=== PATIENT | female | born 1965 | race Caucasian/White ===

== ENCOUNTER → 2016-09-03 | Outpatient (CLI) | payer OTHER ==
--- NOTE | 2016-09-04 07:24 | MM ---
Reason for exam: screening (asymptomatic). Last mammogram was performed 3 years and 9 months ago. History: Took hormonal contraceptives for 10 years beginning at age 19. Physical Findings: A clinical breast exam by your physician is recommended on an annual basis and results should be correlated with mammographic findings. MG Screening Mammo w CAD Bilateral CC and MLO view(s) were taken. Prior study comparison: December 05, 2012, bilateral digital screening mammo w/CAD. November 24, 2010, bilateral digital screening mammo w/CAD. There are scattered fibroglandular densities. No significant changes when compared with prior studies. ASSESSMENT: Benign, BI-RAD 2 RECOMMENDATION: Routine screening mammogram of both breasts in 1 year.
== END | disposition home or self-care (01) ==
LOC: RADMAMWWP 14:53
PROVIDERS: ATTEND Family Medicine
DX: Z12.31 Encounter for screening mammogram for malignant neoplasm of breast (principal)

== ENCOUNTER 2017-05-18 06:57 | Day surgery (SDC) | payer OTHER ==
[2017-04-30 10:51] VITALS: BMI 41.0
[~2017-05-18 06:57] MED LIST: LACTATED RINGERS 1,000 ML IV SCH
[2017-05-18] MEDS ORDERED: LACTATED RINGERS 1,000 ML IV ONE ×2 (07:08)
[2017-05-18 07:11] VITALS: TEMP 98.3
[2017-05-18] MEDS ORDERED: PROPOFOL 10 MG/ML 20 ML VIAL IV ONE (07:43)
--- NOTE | 2017-05-18 07:52 | P.GSHP ---
History of Present Illness H&P Date: 05/18/17 Chief Complaint: Screening colonoscopy This a 51-year-old female who is referred from Dr. Estrada. Patient presents today for screening colonoscopy. She's never had a colonoscopy before. She denies any significant GI complaints. Past Medical History Past Medical History: Asthma History of Any Multi-Drug Resistant Organisms: None Reported Past Surgical History: Section, Cholecystectomy Additional Past Surgical History / Comment(s): RT WRIST ORIF, PLATE/SCREWS Past Anesthesia/Blood Transfusion Reactions: No Reported Reaction Past Psychological History: Depression Smoking Status: Never smoker Past Alcohol Use History: None Reported Past Drug Use History: None Reported - Past Family History Mother Family Medical History: No Reported History Medications and Allergies Home Medications Medication Instructions Recorded Confirmed Type Albuterol Inhaler [Ventolin 1 - 2 puff INHALATION Q6HR PRN 07/03/14 05/18/17 History Inhaler] Hydrocodone/Acetaminophen [[place] 1 each PO Q6H PRN 07/03/14 05/18/17 History 10-325] Ipratropium-Albuterol Nebulize 3 ml IH QID PRN 07/03/14 05/18/17 History [Duoneb 0.5 mg-3 mg/3 ml Soln] FLUoxetine HCL [PROzac] 80 mg PO QAM 04/30/17 05/18/17 History Gabapentin 600 mg PO Q8H 04/30/17 05/18/17 History Montelukast [Singulair] 10 mg PO HS 04/30/17 05/18/17 History Naproxen 250 mg PO DAILY PRN 04/30/17 05/18/17 History QUEtiapine [SEROquel] 100 mg PO HS 04/30/17 05/18/17 History Allergies Allergy/AdvReac Type Severity Reaction Status Date / Time No Known Allergies Allergy Verified 05/18/17 07:18 Surgical - Exam Vital Signs Temp Pulse Resp BP Pulse Ox 98.3 F 67 16 115/75 96 05/18/17 07:09 05/18/17 07:09 05/18/17 07:09 05/18/17 07:09 05/18/17 07:09 - General well developed, no distress - Eyes PERRL - ENT normal pinna - Neck no masses - Respiratory normal expansion - Cardiovascular Rhythm: regular Heart Sounds: normal: S1 - Abdomen Abdomen: soft, non tender Assessment and Plan Assessment: We'll perform screening colonoscopy.
--- NOTE | 2017-05-18 08:14 | P.OP ---
Date of Procedure: 05/18/17 Preoperative Diagnosis: Screening colonoscopy Postoperative Diagnosis: Diverticulosis Procedure(s) Performed: Colonoscopy Anesthesia: MAC Surgeon: Jacoby Tadeo Pathology: none sent Condition: stable Disposition: PACU Description of Procedure: The patient's placed on the endoscopy table in the lateral position. She received IV sedation. Digital rectal exam was performed which revealed no abnormalities. The flexible colonoscope was then placed patient anus passed throughout the entire colon. The ileocecal valve was visualized. The cecum, ascending and transverse colon appeared normal. In the descending and sigmoid there is moderate diverticulosis. The scope was then brought back the rectum and this appeared normal. Scope was withdrawn for patient.
[2017-05-18 08:51] VITALS: BP 110/62; PULSE 60; RESP 20
== END 2017-05-18 08:55 | disposition home or self-care (01) ==
LOC: ORWHC2ENDO 06:57
PROVIDERS: ATTEND Surgery
DX: Z12.11 Encounter for screening for malignant neoplasm of colon (principal); K57.30 Diverticulosis of large intestine without perforation or abscess without bleeding; J45.909 Unspecified asthma, uncomplicated; Z79.899 Other long term (current) drug therapy; F32.9 Major depressive disorder, single episode, unspecified
CPT/HCPCS: J2704; G0121

== ENCOUNTER → 2017-05-28 | Outpatient (CLI) | payer OTHER ==
--- NOTE | 2017-05-28 18:58 | CT ---
EXAMINATION TYPE: CT abdomen pelvis w con DATE OF EXAM: 05/28/2017 COMPARISON: NONE HISTORY: Diverticulitis. Abdominal pain CT DLP: 2774.4 mGycm Automated exposure control for dose reduction was used. TECHNIQUE: Helical acquisition of images was performed from the lung bases through the pelvis. CONTRAST: Performed with Oral Contrast and with IV Contrast, patient injected with 100ml mL of Omnipaque 300. FINDINGS: The lung bases are clear of consolidation. There is no pleural effusion. There is no pericardial effu jo. Heart is probably enlarged. Liver spleen pancreas appear normal. Bile ducts are not dilated. There are clips from cholecystectomy . There is no adrenal mass. Kidneys show satisfactory contrast opacification. There is no hydronephrosi s. There is no retroperitoneal adenopathy. There is no ascites. Appendix appears normal. Fecal patter n is normal. I see no intestinal wall thickening. There are no dilated loops. There is no sign of a h ernia. Bladder distends smoothly. There is no sign of a pelvic mass. IMPRESSION: NEGATIVE CT SCAN OF THE ABDOMEN AND PELVIS. NORMAL APPENDIX. NO EVIDENCE OF DIVERTICULITIS. THERE IS PROBABLY CARDIOMEGALY.
== END | disposition home or self-care (01) ==
LOC: RADCTMAIN 17:02
PROVIDERS: ATTEND Surgery
DX: K57.33 Diverticulitis of large intestine without perforation or abscess with bleeding (principal)
CPT/HCPCS: 74177; Q9967

== ENCOUNTER → 2017-07-12 | Outpatient (CLI) | payer OTHER ==
[2017-07-12 15:36] VITALS: BP 128/84; PULSE 64; TEMP 98; BMI 46.5
--- NOTE | 2017-07-12 16:51 | P.HPBAR ---
Bariatric H&P - History & Physicial H&P Date: 07/12/17 History & Physicial: Visit/CC: initial bariatric visit Patient initial contact: Initial weight: Initial weight in pounds: Height: 5 ft 8 in Initial BMI: Last weight: Current weight: 138.981 kg Current weight in pounds: 306.40 Current BMI: 46.5 [place] body weight (based on NIH guidelines): 63.503 kg Excess body weight loss: The patient is a 51 year-old F who presents for Bariatric Assessment. Patient presents today for inpatient consultation. Patient had lifetime present previously. Her current BMI is 47. Patient is requesting undergo sleeve gastrectomy. Past Medical History Past Medical History: Asthma History of Any Multi-Drug Resistant Organisms: None Reported Past Surgical History: Section, Cholecystectomy Additional Past Surgical History / Comment(s): RT WRIST ORIF, PLATE/SCREWS Past Anesthesia/Blood Transfusion Reactions: No Reported Reaction Past Psychological History: Depression Smoking Status: Never smoker Past Alcohol Use History: None Reported Past Drug Use History: None Reported - Past Family History Mother Family Medical History: No Reported History Surgical - Exam Vital Signs Temp Pulse BP 98.0 F 64 128/84 07/12/17 15:33 07/12/17 15:33 07/12/17 15:33 - General well developed, no distress - Eyes PERRL - ENT normal pinna - Neck no masses - Respiratory normal expansion - Cardiovascular Rhythm: regular - Abdomen Abdomen: soft, non tender Bariatric Assessment & Plan Plan: I had a lengthy discussion with patient regarding sleeve gastrectomy. Patient was reversed surgery including possible gastric staple line disruption, bleeding or scarring. Patient was scheduled for EGD. Bariatric Checklist Checklist: Plan: Checklist: EGD: 1. Hiatal hernia: 2. H. Pylori: HgbA1c: Vitamin D: Smoking: Never smoker Primary care physician referral: dr rossi Psychiatry clearance: Cardiology clearance: Sleep study: Diet journal: VTE risk score: VTE risk level: Rehab needs at discharge:
== END | disposition home or self-care (01) ==
LOC: BARWHC3 14:28
PROVIDERS: ATTEND Surgery
DX: E66.01 Morbid (severe) obesity due to excess calories (principal); J45.909 Unspecified asthma, uncomplicated; F41.9 Anxiety disorder, unspecified; F32.9 Major depressive disorder, single episode, unspecified; E55.9 Vitamin D deficiency, unspecified; E44.0 Moderate protein-calorie malnutrition; D50.8 Other iron deficiency anemias; Z98.890 Other specified postprocedural states; Z90.49 Acquired absence of other specified parts of digestive tract; Z68.42 Body mass index [BMI] 45.0-49.9, adult
CPT/HCPCS: 99211

== ENCOUNTER → 2017-07-21 | Outpatient (CLI) | payer OTHER ==
[2017-07-21 13:25] LABS: HCT 42.9 % (34.0-46.0); HGB 13.5 gm/dL (11.4-16.0); MCH 26.3 pg (25.0-35.0); MCHC 31.6 g/dL (31.0-37.0); MCV 83.3 fL (80.0-100.0); Mean Platelet Volume 6.9; Platelet Count 264 k/uL (150-450); RBC 5.14 m/uL (3.80-5.40); RDW 13.5 % (11.5-15.5); WBC 6.8 k/uL (3.8-10.6)
[2017-07-21 13:38] LABS: ALT 20 U/L (9-52); AST 26 U/L (14-36); Albumin 3.6 g/dL (3.5-5.0); Alkaline Phosphatase 109 U/L (38-126); Anion Gap 10 mmol/L; Blood Urea Nitrogen 12 mg/dL (7-17); Carbon Dioxide 30 mmol/L (22-30); Chloride 107 mmol/L (98-107); Glucose 82 mg/dL (74-99); Potassium 4.3 mmol/L (3.5-5.1); Sodium 147 mmol/L (137-145); Total Bilirubin 0.2 mg/dL (0.2-1.3); Total Protein 6.1 g/dL (6.3-8.2)
[2017-07-21 19:31] LABS: Iron Saturation 11.27 (12.00-45.00)
[2017-07-21 19:38] LABS: Vitamin D 25 Hydroxy 15.2 ng/mL (30.0-100.0)
[2017-07-21 21:03] LABS: Hemoglobin A1C 5.1 % (4.0-6.0)
[2017-07-24 16:21] LABS: Anabasine Urine <2.0 ng/mL (<2.0)
== END | disposition home or self-care (01) ==
LOC: LABWHC1 12:45
PROVIDERS: ATTEND Surgery
DX: E66.01 Morbid (severe) obesity due to excess calories (principal); D50.8 Other iron deficiency anemias; E44.0 Moderate protein-calorie malnutrition; E55.9 Vitamin D deficiency, unspecified
CPT/HCPCS: 80053; 83540; 83550; 84443; 85027; 82306; 83036; 93005; 36415; G0480 ×2; 80307; 80323; 80356; 80364; 80373

== ENCOUNTER 2017-07-30 08:46 | Day surgery (SDC) | payer OTHER ==
[2017-07-28 15:18] VITALS: BMI 45.6
[~2017-07-30 08:46] MED LIST changes: +LIDOCAINE 1% 20 ML VIAL (10MG/ML) FOR IV START INTRADERMA PRN; +MIDAZOLAM 2 MG/2 ML VIAL IV PRN
--- NOTE | 2017-07-30 08:56 | P.GSHP ---
History of Present Illness H&P Date: 07/30/17 Chief Complaint: GERD This is a 51-year-old female presents today for EGD. She's had issues with GERD. Past Medical History Past Medical History: Asthma History of Any Multi-Drug Resistant Organisms: None Reported Past Surgical History: Section, Cholecystectomy, Orthopedic Surgery Additional Past Surgical History / Comment(s): RT WRIST ORIF, PLATE/SCREWS Past Anesthesia/Blood Transfusion Reactions: No Reported Reaction Smoking Status: Never smoker - Past Family History Mother Family Medical History: No Reported History Medications and Allergies Home Medications Medication Instructions Recorded Confirmed Type Albuterol Inhaler [Ventolin 1 - 2 puff INHALATION Q6HR PRN 07/03/14 07/28/17 History Inhaler] Hydrocodone/Acetaminophen [[place] 1 each PO Q6H PRN 07/03/14 07/28/17 History 10-325] Ipratropium-Albuterol Nebulize 3 ml IH QID PRN 07/03/14 07/28/17 History [Duoneb 0.5 mg-3 mg/3 ml Soln] FLUoxetine HCL [PROzac] 80 mg PO QAM 04/30/17 07/28/17 History Gabapentin 600 mg PO Q8H 04/30/17 07/28/17 History Montelukast [Singulair] 10 mg PO HS 04/30/17 07/28/17 History Naproxen 250 mg PO DAILY PRN 04/30/17 07/28/17 History QUEtiapine [SEROquel] 100 mg PO HS 04/30/17 07/28/17 History Allergies Allergy/AdvReac Type Severity Reaction Status Date / Time No Known Allergies Allergy Verified 07/28/17 15:16 Surgical - Exam - General well developed, no distress - Eyes PERRL - ENT normal pinna - Neck no masses - Respiratory normal expansion - Cardiovascular Rhythm: regular - Abdomen Abdomen: soft, non tender Assessment and Plan Assessment: GERD. We'll perform EGD.
[2017-07-30 09:20] VITALS: RESP 18; TEMP 98
[2017-07-30] MEDS ORDERED: PROPOFOL 10 MG/ML 20 ML VIAL IV ONE (10:10)
[2017-07-30] MEDS ORDERED: LIDOCAINE 1% INJ 10MG/ML (20 ML MDV) ONE (10:10)
--- NOTE | 2017-07-30 10:12 | P.GSHP ---
History of Present Illness H&P Date: 07/30/17 Chief Complaint: GERD, morbid obesity, BMI 46 This a 51-year-old female who presents today for EGD. She's had issues with GERD. She is currently undergoing workup for sleeve gastrectomy. Past Medical History Past Medical History: Asthma History of Any Multi-Drug Resistant Organisms: None Reported Past Surgical History: Section, Cholecystectomy, Orthopedic Surgery Additional Past Surgical History / Comment(s): RT WRIST ORIF, PLATE/SCREWS Past Anesthesia/Blood Transfusion Reactions: No Reported Reaction Smoking Status: Never smoker - Past Family History Mother Family Medical History: No Reported History Medications and Allergies Home Medications Medication Instructions Recorded Confirmed Type Albuterol Inhaler [Ventolin 1 - 2 puff INHALATION Q6HR PRN 07/03/14 07/30/17 History Inhaler] Hydrocodone/Acetaminophen [[place] 1 each PO Q6H PRN 07/03/14 07/30/17 History 10-325] Ipratropium-Albuterol Nebulize 3 ml IH QID PRN 07/03/14 07/30/17 History [Duoneb 0.5 mg-3 mg/3 ml Soln] FLUoxetine HCL [PROzac] 80 mg PO QAM 04/30/17 07/30/17 History Gabapentin 600 mg PO Q8H 04/30/17 07/30/17 History Montelukast [Singulair] 10 mg PO HS 04/30/17 07/28/17 History Naproxen 250 mg PO DAILY PRN 04/30/17 07/28/17 History QUEtiapine [SEROquel] 100 mg PO HS 04/30/17 07/28/17 History Allergies Allergy/AdvReac Type Severity Reaction Status Date / Time No Known Allergies Allergy Verified 07/28/17 15:16 Surgical - Exam Vital Signs Temp Pulse Resp BP Pulse Ox 98.0 F 61 18 117/66 97 07/30/17 09:17 07/30/17 09:17 07/30/17 09:17 07/30/17 09:17 07/30/17 09:17 - General well developed, no distress - Eyes PERRL - ENT normal pinna - Neck no masses - Respiratory normal expansion - Cardiovascular Rhythm: regular - Abdomen Abdomen: soft, non tender Assessment and Plan Assessment: GERD, morbid obesity we'll perform EGD.
--- NOTE | 2017-07-30 10:21 | P.OP ---
Date of Procedure: 07/30/17 Preoperative Diagnosis: GERD Morbid obesity Postoperative Diagnosis: Antral gastritis Small sliding hiatal hernia Mild esophagitis Procedure(s) Performed: EGD Anesthesia: MAC Surgeon: Jacoby Tadeo Pathology: other (Antrum, esophagus) Condition: stable Disposition: PACU Description of Procedure: The patient's placed on the endoscopy table in the lateral position. She received IV sedation. The gastroscope placed oropharynx passed in the esophagus stomach. Scope was then placed through the pylorus. The first and second portion of the duodenum appeared normal. Scope was then brought back the antrum this was mildly inflamed. A biopsy was performed. The scope was then retroflexed and the remainder of the stomach. Normal. There was a small sliding hiatal hernia. The GE junction was at 40 cm. The distal esophagus appeared mildly inflamed a biopsies performed. The proximal esophagus appeared normal. Scope was withdrawn for patient.
[2017-07-30 10:41] VITALS: BP 105/64; PULSE 68
== END 2017-07-30 11:02 | disposition home or self-care (01) ==
LOC: ORWHC2ENDO 08:46
PROVIDERS: ATTEND Surgery
DX: K29.70 Gastritis, unspecified, without bleeding (principal); K21.0 Gastro-esophageal reflux disease with esophagitis; K44.9 Diaphragmatic hernia without obstruction or gangrene; E66.01 Morbid (severe) obesity due to excess calories; Z68.42 Body mass index [BMI] 45.0-49.9, adult; J45.909 Unspecified asthma, uncomplicated; Z79.899 Other long term (current) drug therapy; Z78.0 Asymptomatic menopausal state
CPT/HCPCS: 88305; 43239; J2001; J2704

== ENCOUNTER → 2017-08-16 | Outpatient (CLI) | payer OTHER ==
[2017-08-16 15:04] VITALS: BP 117/58; PULSE 70; RESP 16; TEMP 98.3; BMI 48.1
--- NOTE | 2017-08-16 15:22 | P.HPBAR ---
Bariatric H&P - History & Physicial H&P Date: 08/16/17 History & Physicial: Visit/CC: band adj Patient initial contact: Initial weight: Initial weight in pounds: Height: 5 ft 8 in Initial BMI: Last weight: Current weight: 143.534 kg Current weight in pounds: 316.44 Current BMI: 48.1 [place] body weight (based on NIH guidelines): 63.503 kg Excess body weight loss: The patient is a 51 year-old F who presents for Bariatric Assessment. Patient presents today for presurgical consultation for gastric sleeve. She is morbidly obese with BMI 48. Past Medical History Past Medical History: Asthma History of Any Multi-Drug Resistant Organisms: None Reported Past Surgical History: Section, Cholecystectomy Additional Past Surgical History / Comment(s): RT WRIST ORIF, PLATE/SCREWS Past Anesthesia/Blood Transfusion Reactions: No Reported Reaction Past Psychological History: Depression Smoking Status: Never smoker Past Alcohol Use History: None Reported Past Drug Use History: None Reported - Past Family History Mother Family Medical History: No Reported History Surgical - Exam Vital Signs Temp Pulse Resp BP 98.3 F 70 16 117/58 08/16/17 15:01 08/16/17 15:01 08/16/17 15:01 08/16/17 15:01 - General well developed, well nourished, no distress - Abdomen Abdomen: soft, non tender Bariatric Assessment & Plan Plan: Morbid obesity with BMI of 48. Patient has a very good understanding of the sleeve gastrectomy. We went over the risks and benefits of procedure including gastric perforation. Patient will follow-up in 4 weeks. She'll be scheduled for sleeve gastrectomy once her insurance authorization requirements have been met. Bariatric Checklist Checklist: Plan: Checklist: EGD: 1. Hiatal hernia: 2. H. Pylori: HgbA1c: Vitamin D: Smoking: Never smoker Primary care physician referral: dr rossi Psychiatry clearance: Cardiology clearance: Sleep study: Diet journal: VTE risk score: VTE risk level: Rehab needs at discharge:
== END | disposition home or self-care (01) ==
LOC: BARWHC3 14:45
PROVIDERS: ATTEND Surgery
DX: Z01.818 Encounter for other preprocedural examination (principal); E66.01 Morbid (severe) obesity due to excess calories; Z68.42 Body mass index [BMI] 45.0-49.9, adult
CPT/HCPCS: 99211

== ENCOUNTER → 2017-10-11 | Outpatient (CLI) | payer OTHER ==
[2017-10-11 11:05] VITALS: BMI 45.9
== END | disposition home or self-care (01) ==
LOC: MNTWWP 09:09
PROVIDERS: ATTEND Family Medicine
DX: E66.01 Morbid (severe) obesity due to excess calories (principal); Z68.42 Body mass index [BMI] 45.0-49.9, adult
CPT/HCPCS: 97802

== ENCOUNTER 2024-07-09 14:06 | Emergency (ER) | payer OTHER ==
[2024-07-09] MEDS: LIDOCAINE 1% INJ 10MG/ML (20 ML MDV) SQ ONE (14:34)
--- NOTE | 2024-07-09 15:09 | ED ---
Wound/Laceration HPI - General Chief Complaint: Wound/Laceration Stated Complaint: right leg laceration Time Seen by Provider: 07/09/24 15:08 Source: patient Mode of arrival: wheelchair Limitations: no limitations - History of Present Illness Initial Comments: 58-year-old female presented to the ER for evaluation of a laceration. Patient reports she was sitting in a wheelchair after exiting her vehicle and did not push the wheelchair back far enough prior to closing the door which caused a laceration to her right anterior calf. Patient reports bleeding from wound since incident. Tetanus status is up-to-date. Patient denies any paresthesias or limited range of motion to right lower extremity. No other injuries or complaints at this time. - Related Data Home Medications Medication Instructions Recorded Confirmed Albuterol Inhaler [Ventolin 1 - 2 puff INHALATION Q6HR PRN 07/03/14 06/04/23 Inhaler] Hydrocodone/Acetaminophen [[place] 1 each PO Q6H PRN 07/03/14 06/04/23 10-325] Ipratropium-Albuterol Nebulize 3 ml IH QID PRN 07/03/14 06/04/23 [Duoneb 0.5 mg-3 mg/3 ml Soln] Gabapentin 600 mg PO Q8H 04/30/17 06/04/23 Montelukast [Singulair] 10 mg PO HS 04/30/17 06/04/23 Naproxen 250 mg PO DAILY PRN 04/30/17 06/04/23 Nortriptyline [Pamelor] 25 mg PO HS 05/20/23 06/04/23 traZODone HCL 150 mg PO DAILY 05/20/23 06/04/23 Previous Rx's Medication Instructions Recorded Amoxic-Pot Clav 875-125Mg 1 tab PO Q12HR 5 Days #10 tab 07/09/24 [Augmentin 875-125] Allergies Allergy/AdvReac Type Severity Reaction Status Date / Time No Known Allergies Allergy Verified 07/09/24 14:17 Review of Systems ROS Statement: Those systems with pertinent positive or pertinent negative responses have been documented in the HPI. ROS Other: All systems not noted in ROS Statement are negative. Past Medical History Past Medical History: Asthma History of Any Multi-Drug Resistant Organisms: None Reported Past Surgical History: Section, Cholecystectomy Additional Past Surgical History / Comment(s): RT WRIST ORIF, PLATE/SCREWS Past Anesthesia/Blood Transfusion Reactions: No Reported Reaction Past Psychological History: Depression Smoking Status: Never smoker - Past Family History Mother Family Medical History: No Reported History General Exam Limitations: no limitations General appearance: alert, in no apparent distress Respiratory exam: Present: normal lung sounds bilaterally. Absent: respiratory distress, wheezes, rales, rhonchi, stridor Cardiovascular Exam: Present: regular rate, normal rhythm, normal heart sounds. Absent: systolic murmur, diastolic murmur, rubs, gallop, clicks Extremities exam: Present: normal inspection, full ROM, normal capillary refill (2+ right PT/DP pulse), other (Bilateral lower extremities with 1+ pitting edema bilaterally-lymphedematous). Absent: tenderness, pedal edema, joint swelling, calf tenderness Neurological exam: Present: alert, oriented X3, CN II-XII intact Skin exam: Present: warm, dry, intact, normal color, other (7 cm x 7 cm flap laceration to right anterior calf. Minimal bleeding. There is oozing of clear fluid noted.) Course Vital Signs 07/09/24 07/09/24 14:14 15:30 Temperature 97.9 F 98.0 F Pulse Rate 84 89 Respiratory 16 20 Rate Blood Pressure 161/84 142/88 O2 Sat by Pulse 95 94 L Oximetry Procedures - Laceration Laceration #1 Consent Obtained: verbal consent Indication: laceration Site: lower extremity Size (cm): 7 (7 cm x 7cm) Description: flap, avulsion Depth: simple, single layer (dermal layer) Anesthetic Used: lidocaine 1%, without epi Anesthesia Technique: local infiltration Amount (mls): 6 Pre-repair: wound explored, irrigated extensively, deep structures intact Type of Sutures: nylon Size of Sutures: 5-0 Number of Sutures: 10 Technique: simple, interrupted Complications: other (vertical laceration unable to be closed completed due to lymphedema) Patient Tolerated Procedure: well Medical Decision Making - Medical Decision Making Was pt. sent in by a medical professional or institution (, PA, ACUTE CARE REGISTERED NURSE, urgent care, hospital, or fpc...) When possible be specific @ -No Did you speak to anyone other than the patient for history (EMS, parent, family, police, friend...)? What history was obtained from this source @ -Patient's daughter, at bedside, aiding in HPI. Did you review nursing and triage notes (agree or disagree)? Why? @ -I reviewed and agree with nursing and triage notes Were old charts reviewed (outside hosp., previous admission, EMS record, old EKG, old radiological studies, urgent care reports/EKG's, fpc records)? Report findings @ -No old charts were reviewed Differential Diagnosis (chest pain, altered mental status, abdominal pain women, abdominal pain men, vaginal bleeding, weakness, fever, dyspnea, syncope, headache, dizziness, GI bleed, back pain, seizure, CVA, palpatations, mental health, musculoskeletal)? @ -Laceration, abrasion, contusion, avulsion, foreign body this list is not meant to be all-inclusive EKG interpreted by me (3pts min.). @ -None done X-rays interpreted by me (1pt min.). @ -None done CT interpreted by me (1pt min.). @ -None done U/S interpreted by me (1pt. min.). @ -None done What testing was considered but not performed or refused? (CT, X-rays, U/S, labs)? Why? @ -None What meds were considered but not given or refused? Why? @ -None Did you discuss the management of the patient with other professionals (professionals i.e. , PA, ACUTE CARE REGISTERED NURSE, lab, RT, psych nurse, vp digital marketing social media and crm, child day care provider, teacher, career services officer, comp field case manager)? Give summary @ -No Was smoking cessation discussed for >3mins.? @ -No Was critical care preformed (if so, how long)? @ -No Were there social determinants of health that impacted care today? How? (Homelessness, low income, unemployed, alcoholism, drug addiction, transportation, low edu. Level, literacy, decrease access to med. care, longterm, rehab)? @ -No Was there de-escalation of care discussed even if they declined (Discuss DNR or withdrawal of care, Hospice)? DNR status @ -No What co-morbidities impacted this encounter? (DM, HTN, Smoking, COPD, CAD, Cancer, CVA, ARF, Chemo, Hep., AIDS, mental health diagnosis, sleep apnea, morbid obesity)? @ -None Was patient admitted / discharged? Hospital course, mention meds given and route, prescriptions, significant lab abnormalities, going to OR and other pertinent info. @ -58-year-old female presented to ER for evaluation of a laceration. Vitals within acceptable limits. There is a 7 cm x 7 cm flap laceration noted to left anterior calf. There is minimal bleeding but oozing of clear fluid noted. Bilateral lower extremities are edematous contributing to lymphedema. . Patient is neurovascular intact. Tetanus is up-to-date Wound cleansed with iodine and sterile water prior to closure. 10 simple interrupted sutures placed. Vertical laceration line unable to be fully close given tension due to lymphedema, loose sutures placed. Wound was dressed with Gelfoam and compression dressing prior to discharge. I advised suture removal in 10 to 14 days. Augmentin for infection prophylaxis. I instructed her to follow-up closely with PCP for further evaluation of lymphedema. Strict return parameters discussed. Patient discharged in stable condition. Patient verbally expressed understanding and agreement with care plan. Case discussed with ED attending, Dr. Montez. Undiagnosed new problem with uncertain prognosis? @ -No Drug Therapy requiring intensive monitoring for toxicity (Heparin, Nitro, Insulin, Cardizem)? @ -No Were any procedures done? @ -Yes, laceration closure Diagnosis/symptom? @ -Laceration Acute, or Chronic, or Acute on Chronic? @ -Acute Uncomplicated (without systemic symptoms) or Complicated (systemic symptoms)? @ -Uncomplicated Side effects of treatment? @ -No Exacerbation, Progression, or Severe Exacerbation? @ -No Poses a threat to life or bodily function? How? (Chest pain, [place], [place], pneumonia, PE, COPD, DKA, ARF, appy, cholecystitis, CVA, Diverticulitis, Homicidal, Suicidal, threat to staff... and all critical care pts) @ -No Disposition Clinical Impression: Laceration Disposition: HOME SELF-CARE Condition: Stable Instructions (If sedation given, give patient instructions): Care For Your Stitches (DC), Laceration (DC) Additional Instructions: Keep area clean and dry. Keep dressing in place for approximately 24 to 48 hours. Have sutures removed in 10 to 14 days. Take augmentin as prescribed. Follow-up closely with PCP. Return to the ER for any new or worsening concerns. Prescriptions: Amoxic-Pot Clav 875-125Mg [Augmentin 875-125] 1 tab PO Q12HR 5 Days #10 tab Is patient prescribed a controlled substance at d/c from ED?: No Referrals: Karly Wagner MD [Primary Care Provider] - 1-2 days Time of Disposition: 15:08
[2024-07-09 15:31] VITALS: BP 142/88; PULSE 89; RESP 20; TEMP 98
== END 2024-07-09 17:01 | disposition home or self-care (01) ==
LOC: EC 14:06
DX: S81.811A Laceration without foreign body, right lower leg, initial encounter (principal); W26.8XXA Contact with other sharp object(s), not elsewhere classified, initial encounter
CPT/HCPCS: 12007; 99282; J2003

== ENCOUNTER 2024-07-20 14:00 | Inpatient (IN) | payer OTHER ==
--- NOTE | 2024-07-20 15:26 | ED ---
General Adult HPI - General Chief complaint: Recheck/Abnormal Lab/Rx Stated complaint: R Leg Wound Issue Time Seen by Provider: 07/20/24 15:14 Source: patient Mode of arrival: wheelchair Limitations: no limitations - History of Present Illness Initial comments: Dictation was produced using Fix[employer] dictation software. please excuse any grammatical, word or spelling errors. Chief Complaint: 58-year-old female presents emergency department with infected wound History of Present Illness: Patient is a 58-year-old female presents emergency department with infected wound. 10 days ago she suffered a laceration. Since she was seen in the ER she had suture repair noticed that her wound appeared to be red. Denies any malodorous nature to it. Patient came to ER to get her sutures removed and nurse who attempted to remove sutures felt that patient's w ound appeared to be suspicious. Patient checked in because of that. Denies any fever chills or night sweats. The ROS documented in this emergency department record has been reviewed and confirmed by me. Those systems with pertinent positive or negative responses have been documented in the HPI. All other systems are other negative and/or noncontributory. - Related Data Home Medications Medication Instructions Recorded Confirmed Albuterol Inhaler [Ventolin 1 - 2 puff INHALATION Q6HR PRN 07/03/14 06/04/23 Inhaler] Hydrocodone/Acetaminophen [[place] 1 each PO Q6H PRN 07/03/14 06/04/23 10-325] Ipratropium-Albuterol Nebulize 3 ml IH QID PRN 07/03/14 06/04/23 [Duoneb 0.5 mg-3 mg/3 ml Soln] Gabapentin 600 mg PO Q8H 04/30/17 06/04/23 Montelukast [Singulair] 10 mg PO HS 04/30/17 06/04/23 Naproxen 250 mg PO DAILY PRN 04/30/17 06/04/23 Nortriptyline [Pamelor] 25 mg PO HS 05/20/23 06/04/23 traZODone HCL 150 mg PO DAILY 05/20/23 06/04/23 Previous Rx's Medication Instructions Recorded Amoxic-Pot Clav 875-125Mg 1 tab PO Q12HR 5 Days #10 tab 07/09/24 [Augmentin 875-125] Allergies Allergy/AdvReac Type Severity Reaction Status Date / Time No Known Allergies Allergy Verified 07/20/24 14:06 Review of Systems ROS Statement: Those systems with pertinent positive or pertinent negative responses have been documented in the HPI. ROS Other: All systems not noted in ROS Statement are negative. Past Medical History Past Medical History: Asthma History of Any Multi-Drug Resistant Organisms: None Reported Past Surgical History: Section, Cholecystectomy Additional Past Surgical History / Comment(s): RT WRIST ORIF, PLATE/SCREWS Past Anesthesia/Blood Transfusion Reactions: No Reported Reaction Past Psychological History: Depression Smoking Status: Never smoker Past Alcohol Use History: None Reported Past Drug Use History: None Reported - Past Family History Mother Family Medical History: No Reported History General Exam - General Exam Comments Initial Comments: PHYSICAL EXAM: General Impression: Alert and oriented x3, not in acute distress HEENT: Normocephalic atraumatic, extra-ocular movements intact, pupils equal and reactive to light bilaterally, mucous membranes moist. Cardiovascular: Heart regular rate and rhythm Chest: Able to complete full sentences, no retractions, no tachypnea Abdomen: abdomen soft, non-tender, non-distended, no organomegaly Musculoskeletal: Pulses present and equal in all extremities, no peripheral edema Motor: no focal deficits noted Neurological: CN II-XII grossly intact, no focal motor or sensory deficits noted Skin: Laceration to the right lower anterior leg with surrounding erythema. No purulent drainage Psych: Normal affect and mood Limitations: no limitations Course Vital Signs 07/20/24 14:04 Temperature 97.9 F Respiratory 18 Rate Blood Pressure 143/80 O2 Sat by Pulse 96 Oximetry Medical Decision Making - Medical Decision Making Was pt. sent in by a medical professional or institution (, PA, SURGICAL TECHNOLOGY INSTRUCTOR, urgent care, hospital, or fpc...) When possible be specific @ -No Did you speak to anyone other than the patient for history (EMS, parent, family, police, friend...)? What history was obtained from this source @ -No Did you review nursing and triage notes (agree or disagree)? Why? @ -I reviewed and agree with nursing and triage notes Were old charts reviewed (outside hosp., previous admission, EMS record, old EKG, old radiological studies, urgent care reports/EKG's, fpc records)? Report findings @ -No old charts were reviewed Differential Diagnosis (chest pain, altered mental status, abdominal pain women, abdominal pain men, vaginal bleeding, musculoskeletal, weakness, fever, dyspnea, syncope, headache, dizziness, GI bleed, back pain, seizure, CVA, palpatations, m ental health)? @ -Cellulitis, Pseudomonas cellulitis, strep cellulitis EKG interpreted by me (3pts min.). @ -None done X-rays interpreted by me (1pt min.). @ -None done CT interpreted by me (1pt min.). @ -None done U/S interpreted by me (1pt. min.). @ -None done What testing was considered but not performed or refused? (CT, X-rays, U/S, labs)? Why? @ -None What meds were considered but not given or refused? Why? @ -None Was smoking cessation discussed for >3mins.? @ -No Were there social determinants of health that impacted care today? How? (Homelessness, low income, unemployed, alcoholism, drug addiction, transportation, low edu. Level, literacy, decrease access to med. care, intermediate, rehab)? @ -No Was there de-escalation of care discussed even if they declined (Discuss DNR or withdrawal of care, Hospice)? DNR status @ -No What co-morbidities impacted this encounter? (DM, HTN, Smoking, COPD, CAD, Cancer, CVA, ARF, Chemo, Hep., AIDS, mental health diagnosis, sleep apnea, morbid obesity)? @ -None Was patient admitted / discharged? Hospital course, mention meds given and route , prescriptions, significant lab abnormalities, going to OR and other pertinent info. @ -58-year-old female presents with infected laceration. Patient was discharged after suffering a laceration with Augmentin. Vital signs stable. Patient wound appears to be infected. Patient will be admitted consultation infectious disease as she is unable to follow-up with them within a reasonable time with her primary care doctor. At this point she is not having constitutional symptoms. Her labs otherwise does not appear suspicious for sepsis. Started on vancomycin. Case discussed with hospitalist for admission Did you discuss the management of the patient with other professionals (professionals i.e. , PA, SURGICAL TECHNOLOGY INSTRUCTOR, lab, RT, psych nurse, older adult social work specialist, web site administrator, teacher, emergency communications officer, watch case polisher)? Give summary @ -No Was critical care preformed (if so, how long)? @ -No Undiagnosed new problem with uncertain prognosis? @ -No Drug Therapy requiring intensive monitoring for toxicity (Heparin, Nitro, Insulin, Cardizem)? @ -No Were any procedures done? @ -No Diagnosis/symptom? Acute, or Chronic, or Acute on Chronic? Uncomplicated (without systemic symptoms) or Complicated (systemic symptoms)? @ -Infected laceration Side effects of treatment? @ -No Exacerbation, Progression, or Severe Exacerbation? @ -No Poses a threat to life or bodily function? How? (Chest pain, [place], [place], pneumonia, PE, COPD, DKA, ARF, appy, cholecystitis, CVA, Diverticulitis, Homicidal, Suicidal, threat to staff... and all critical care pts) @ -No - Lab Data Result diagrams: 07/20/24 16:01 07/20/24 16:01 Lab Results 07/20/24 07/20/24 Range/Units 16:01 16:01 WBC 7.13 (4.50-10.00) 10*3/uL RBC 5.78 H (4.10-5.20) 10*6/uL Hgb 14.8 (12.0-15.0) g/dL Hct 46.8 H (37.2-46.3) % MCV 81.0 (80.0-97.0) fL MCH 25.6 L (27.0-32.0) pg MCHC 31.6 L (32.0-37.0) g/dL Plt Count 347 (140-440) 10*3/uL MPV 8.7 L (9.5-12.2) fL Immature Gran % (Auto) 0.3 % Neutrophils % 61.9 % Lymphocytes % 23.7 % Monocytes % 9.5 % Eosinophils % 3.6 % Basophils % 1.0 % Immature Gran # 0.02 (0.00-0.04) 10*3/uL Neutrophils # 4.41 (1.80-7.70) 10*3/uL Lymphocytes # 1.69 (0.90-5.00) 10*3/uL Monocytes # 0.68 (0.20-1.00) 10*3/uL Eosinophils # 0.26 (0.04-0.35) 10*3/uL Basophils # 0.07 (0.00-0.10) 10*3/uL Sodium 140 (137-145) mmol/L Potassium 4.3 (3.5-5.1) mmol/L Chloride 101 (98-107) mmol/L Carbon Dioxide 30 (22-30) mmol/L Anion Gap 9 mmol/L BUN 8 (7-17) mg/dL Creatinine 0.77 (0.52-1.04) mg/dL Est GFR (CKD-EPI)AfAm >90 (>60 ml/min/1.73 sqM) Est GFR (CKD-EPI)NonAf 86 (>60 ml/min/1.73 sqM) Glucose 93 (74-99) mg/dL Calcium 9.2 (8.4-10.2) mg/dL C-Reactive Protein 3.3 H (<1.0) mg/dL Disposition Clinical Impression: Infected wound Disposition: ADMITTED IP TO THIS HOSP Condition: Fair Referrals: Karly Wagner MD [Primary Care Provider] - 1-2 days Decision Time: 17:25
[2024-07-20 16:06] LABS: Basophils # (A) 0.07 10*3/uL (0.00-0.10); Eosinophils # (A) 0.26 10*3/uL (0.04-0.35); Eosinophils % (A) 3.6 %; HCT 46.8 % (37.2-46.3); HGB 14.8 g/dL (12.0-15.0); Lymphocytes # (A) 1.69 10*3/uL (0.90-5.00); Lymphocytes % (A) 23.7 %; MCH 25.6 pg (27.0-32.0); MCHC 31.6 g/dL (32.0-37.0); Mean Platelet Volume 8.7 fL (9.5-12.2); Monocytes # (A) 0.68 10*3/uL (0.20-1.00); Monocytes % (A) 9.5 %; Neutrophils # (A) 4.41 10*3/uL (1.80-7.70); Neutrophils % (A) 61.9 %; Platelet Count 347 10*3/uL (140-440); RBC 5.78 10*6/uL (4.10-5.20); RDW 14.6 % (11.5-14.5); WBC 7.13 10*3/uL (4.50-10.00)
[2024-07-20 16:28] LABS: African American GFR (CKD) >90 (>60 ml/min/1.73 sqM); Anion Gap 9 mmol/L; Blood Urea Nitrogen 8 mg/dL (7-17); C Reactive Protein 3.3 mg/dL (<1.0); Calcium 9.2 mg/dL (8.4-10.2); Carbon Dioxide 30 mmol/L (22-30); Chloride 101 mmol/L (98-107); Glucose 93 mg/dL (74-99); Non-African American GFR(CKD) 86 (>60 ml/min/1.73 sqM); Potassium 4.3 mmol/L (3.5-5.1); Sodium 140 mmol/L (137-145)
[2024-07-20] MEDS ORDERED: VANCOMYCIN IV PER PHARMACY 1 EACH MISC MISCELLANE PRN (17:14)
[2024-07-20] MEDS ORDERED: NALOXONE 0.4 MG/ML 1 ML VIAL IV PRN (17:19)
[2024-07-20] MEDS: SODIUM CHLORIDE 0.9% 1,000 ML IV SCH (18:40)
[2024-07-20] MEDS: VANCOMYCIN 2,500 MG in SODIUM CHLORIDE 0.9% 500 ML 500 ML IVPB ONE (18:41)
[2024-07-21] MEDS ORDERED: SYMBICORT 160-4.5 MCG INHALER INHALATION PRN (00:26)
[2024-07-21] MEDS: GABAPENTIN 300 MG CAP PO SCH (01:45)
[2024-07-21] MEDS: traZODone HCL 50 MG TAB PO SCH (01:45)
[2024-07-21] MEDS: VANCOMYCIN 2,500 MG in SODIUM CHLORIDE 0.9% 500 ML 500 ML IVPB SCH (06:29)
[2024-07-21] MEDS: HYDROcodone/APAP 10-325MG 1 EACH TAB PO SCH (08:41)
[2024-07-21] MEDS: FERROUS SULFATE 325 MG TAB PO SCH (08:41)
--- NOTE | 2024-07-21 13:51 | P.GSCN ---
History of Present Illness History of present illness: 58-year-old white female to the emergency room patient had trauma to the right lower EXTR extremity anterior aspect of the lower leg. Patient came for removal of stitches on examination they found the stitches are infected and this patient has a flap necrosis of the skin consulted for debridement of the wound Medical history history of obese history of diabetes on examination Chest good in both lungs few crackles at lung Abdomen is soft nontender Vascular femorals are warm patient has some swelling of the right lower extremity there is an L-shaped incision has a flap necrosis patient is under care of infectious disease will be scheduled for debridement and deep culture Past Medical History Past Medical History: Asthma History of Any Multi-Drug Resistant Organisms: None Reported Past Surgical History: Section, Cholecystectomy Additional Past Surgical History / Comment(s): RT WRIST ORIF, PLATE/SCREWS Past Anesthesia/Blood Transfusion Reactions: No Reported Reaction Smoking Status: Never smoker - Past Family History Mother Family Medical History: No Reported History Medications and Allergies Home Medications Medication Instructions Recorded Confirmed Type Albuterol Inhaler [Ventolin 2 puff INHALATION RT-Q6H PRN 07/03/14 07/20/24 History Inhaler] Hydrocodone/Acetaminophen [[place] 1 tab PO TID 07/03/14 07/20/24 History 10-325] Gabapentin 600 mg PO BID 04/30/17 07/20/24 History Montelukast [Singulair] 10 mg PO HS 04/30/17 07/20/24 History Nortriptyline [Pamelor] 25 mg PO HS 05/20/23 07/20/24 History traZODone HCL 150 mg PO HS 05/20/23 07/20/24 History Ferrous Sulfate [Feosol] 325 mg PO BID 07/20/24 07/20/24 History Fluticasone Propion/Salmeterol 2 puff INHALATION RT-BID PRN 07/20/24 07/20/24 History [Advair Hfa 115-21 Mcg Inhaler] Naloxone HCl [Narcan] 4 mg NASAL DIRECTED PRN 07/20/24 07/20/24 History Pramipexole [Mirapex] 0.5 mg PO HS 07/20/24 07/20/24 History tiZANidine [Zanaflex] 4 mg PO HS 07/20/24 07/20/24 History Allergies Allergy/AdvReac Type Severity Reaction Status Date / Time No Known Allergies Allergy Verified 07/20/24 17:53 Surgical - Exam Vital Signs Temp Resp BP Pulse Ox 97.9 F 18 143/80 96 07/20/24 14:04 07/20/24 14:04 07/20/24 14:04 07/20/24 14:04 Results - Labs 07/20/24 16:01 07/20/24 16:01 Abnormal Lab Results - Last 24 Hours (Table) 07/20/24 07/20/24 Range/Units 16:01 16:01 RBC 5.78 H (4.10-5.20) 10*6/uL Hct 46.8 H (37.2-46.3) % MCH 25.6 L (27.0-32.0) pg MCHC 31.6 L (32.0-37.0) g/dL MPV 8.7 L (9.5-12.2) fL C-Reactive Protein 3.3 H (<1.0) mg/dL Diabetes panel 07/20/24 Range/Units 16:01 Sodium 140 (137-145) mmol/L Potassium 4.3 (3.5-5.1) mmol/L Chloride 101 (98-107) mmol/L Carbon Dioxide 30 (22-30) mmol/L BUN 8 (7-17) mg/dL Creatinine 0.77 (0.52-1.04) mg/dL Glucose 93 (74-99) mg/dL Calcium 9.2 (8.4-10.2) mg/dL Calcium panel 07/20/24 Range/Units 16:01 Calcium 9.2 (8.4-10.2) mg/dL Pituitary panel 07/20/24 Range/Units 16:01 Sodium 140 (137-145) mmol/L Potassium 4.3 (3.5-5.1) mmol/L Chloride 101 (98-107) mmol/L Carbon Dioxide 30 (22-30) mmol/L BUN 8 (7-17) mg/dL Creatinine 0.77 (0.52-1.04) mg/dL Glucose 93 (74-99) mg/dL Calcium 9.2 (8.4-10.2) mg/dL Adrenal panel 07/20/24 Range/Units 16:01 Sodium 140 (137-145) mmol/L Potassium 4.3 (3.5-5.1) mmol/L Chloride 101 (98-107) mmol/L Carbon Dioxide 30 (22-30) mmol/L BUN 8 (7-17) mg/dL Creatinine 0.77 (0.52-1.04) mg/dL Glucose 93 (74-99) mg/dL Calcium 9.2 (8.4-10.2) mg/dL
--- NOTE | 2024-07-21 13:53 | P.PCN ---
Description of Procedure: Diagnosis infected laceration right lower extremity anterior aspect of the lower leg with flap necrosis measurement is 7 x 6 cm Postop postdebridement measurement 7 x 6 x 0.5 Procedure right leg was prepped and draped in Prestel manner 1% lidocaine were infiltrated using knife we excised the left necrosis skin almost down to the beckwith btenons tissue the skin was and tissue was sent for deep there was a hemostasis which was controlled with nitro stick wound was irrigated with saline hemostasis silver alginate is applied to the wound dressing applied patient tarted the procedure well
[2024-07-21] MEDS: SILVER NITRATE APPLICATOR 1 EACH STICK..EA. TOPICAL STA (15:38)
[2024-07-21] MEDS: LIDOCAINE 1% INJ 10MG/ML (20 ML MDV) SQ STA (15:38)
[2024-07-21] MEDS: MONTELUKAST 10 MG TAB PO SCH (20:54)
[2024-07-21] MEDS: PRAMIPEXOLE 0.5 MG TAB PO SCH (20:54)
[2024-07-21] MEDS: tiZANidine 4 MG TAB PO SCH (20:54)
[2024-07-21] MEDS: NORTRIPTYLINE 25 MG CAP PO SCH (22:30)
--- NOTE | 2024-07-21 23:13 | P.CONS ---
History of Present Illness - Reason for Consult Consult date: 07/21/24 Infected laceration Requesting physician: Robbie He - Chief Complaint Increasing swelling redness right leg x days - History of Present Illness Patient is a 58-year-old female possible history significant for asthma morbid obesity recently did have an laceration to the right lower extremity from a car door about 10 days ago for the patient was seen in the positive point and negatives has been mentioned in the HPI, complete review of systems was performed and all other systems are negative and the area was stitched and the patient has been treated with oral Keflex patient presenting back to the hospital concerning for increasing swelling and redness of the right lower extremity and blackish discoloration of the right lower extremity discoloration area patient did have dull aching pain mild intensity without radiation and denies high-grade fever on presentation to the hospital the patient was afebrile patient was not tachycardic hypotensive or hypoxic patient did have white count 7.13 creatinine 0.77 patient was started on vancomycin infectious disease was consulted for infected laceration of the right lower extremity Review of Systems Positive point and negatives has been mentioned in the HPI, complete review of systems was performed and all other systems are negative Past Medical History Past Medical History: Asthma History of Any Multi-Drug Resistant Organisms: None Reported Past Surgical History: Section, Cholecystectomy Additional Past Surgical History / Comment(s): RT WRIST ORIF, PLATE/SCREWS Past Anesthesia/Blood Transfusion Reactions: No Reported Reaction Smoking Status: Never smoker - Past Family History Mother Family Medical History: No Reported History Medications and Allergies Home Medications Medication Instructions Recorded Confirmed Type Albuterol Inhaler [Ventolin 2 puff INHALATION RT-Q6H PRN 07/03/14 07/20/24 History Inhaler] Hydrocodone/Acetaminophen [[place] 1 tab PO TID 07/03/14 07/20/24 History 10-325] Gabapentin 600 mg PO BID 04/30/17 07/20/24 History Montelukast [Singulair] 10 mg PO HS 04/30/17 07/20/24 History Nortriptyline [Pamelor] 25 mg PO HS 05/20/23 07/20/24 History traZODone HCL 150 mg PO HS 05/20/23 07/20/24 History Ferrous Sulfate [Feosol] 325 mg PO BID 07/20/24 07/20/24 History Fluticasone Propion/Salmeterol 2 puff INHALATION RT-BID PRN 07/20/24 07/20/24 History [Advair Hfa 115-21 Mcg Inhaler] Naloxone HCl [Narcan] 4 mg NASAL DIRECTED PRN 07/20/24 07/20/24 History Pramipexole [Mirapex] 0.5 mg PO HS 07/20/24 07/20/24 History tiZANidine [Zanaflex] 4 mg PO HS 07/20/24 07/20/24 History Allergies Allergy/AdvReac Type Severity Reaction Status Date / Time No Known Allergies Allergy Verified 07/20/24 17:53 Physical Exam Vitals: Vital Signs Temp Pulse Pulse Resp BP BP Pulse Ox 07/21/24 07:15 97.3 F L 74 16 143/75 94 L 07/21/24 00:19 98.5 F 84 19 155/78 95 07/20/24 20:23 98.1 F 83 19 179/78 96 07/20/24 19:31 76 20 176/75 99 07/20/24 17:37 82 18 194/85 96 07/20/24 14:04 97.9 F 18 143/80 96 Intake and Output 07/20/24 07/21/24 07/21/24 22:59 06:59 14:59 Other: # Voids 1 1 Weight 170.097 kg GENERAL DESCRIPTION: Middle-age female up in the chair, no distress. No tachypnea or accessory muscle of respiration use. HEENT: Shows Pallor , no scleral icterus. Oral mucous membrane is dry. No pharyngeal erythema or thrush NECK: Trachea central, no thyromegaly. LUNGS: Unlabored breathing. Clear to auscultation anteriorly. No wheeze or crackle. HEART: S1, S2, regular rate and rhythm. No loud murmur ABDOMEN: Soft, no tenderness , guarding or rigidity, no organomegaly EXTREMITIES: Right lower extremity with infected laceration with necrotic skin surrounding swelling redness and warmth SKIN: No rash, no masses palpable. NEUROLOGICAL: The patient is awake, alert, oriented x3, mood and affect normal. Results CBC & Chem 7: 07/20/24 16:01 07/20/24 16:01 Labs: Abnormal Lab Results - Last 24 Hours (Table) 07/20/24 07/20/24 Range/Units 16:01 16:01 RBC 5.78 H (4.10-5.20) 10*6/uL Hct 46.8 H (37.2-46.3) % MCH 25.6 L (27.0-32.0) pg MCHC 31.6 L (32.0-37.0) g/dL MPV 8.7 L (9.5-12.2) fL C-Reactive Protein 3.3 H (<1.0) mg/dL Assessment and Plan (1) Cellulitis of right leg Current Visit: Yes Status: Acute Code(s): L03.115 - CELLULITIS OF RIGHT LOWER LIMB SNOMED Code(s): 59825228068271487 (2) Infected wound Current Visit: Yes Status: Acute Code(s): T14.8XXA - OTHER INJURY OF UNSPECIFIED BODY REGION, INITIAL ENCOUNTER; L08.9 - LOCAL INFECTION OF THE SKIN AND SUBCUTANEOUS TISSUE, UNSP SNOMED Code(s): 26702515 Plan: 1patient presented to hospital with increasing swelling redness of the right lower extremity in this patient who did have a history of right leg laceration from a car door about 10 days ago that was stitched in the ER now presenting with worsening swelling redness concerning for infected wound likely from gram-positive skin camille 2-patient is surgical debridement of the wound with removal of the infected skin and deep culture for which we will consult vascular surgery and case discussed with the surgeon 3-local culture have been obtained to guide further antibiotic therapy 4-vancomycin pharmacy to dose target trough of 15 while watching kidney function and Vanco trough closely We will follow on clinical condition and cultures to further adjust medication if needed Thank you for this consultation we will follow the patient along with you Dictation was produced using [employer] dictation software. please excuse any grammatical, word or spelling errors. Time with Patient: Greater than 30
[2024-07-22] MEDS: ALBUTEROL NEBULIZED 2.5 MG/3 ML INHALATION PRN (01:03)
[2024-07-22 06:57] LABS: African American GFR (CKD) >90 (>60 ml/min/1.73 sqM); Anion Gap 6 mmol/L; Blood Urea Nitrogen 9 mg/dL (7-17); Calcium 8.6 mg/dL (8.4-10.2); Carbon Dioxide 27 mmol/L (22-30); Chloride 105 mmol/L (98-107); Glucose 102 mg/dL (74-99); Non-African American GFR(CKD) >90 (>60 ml/min/1.73 sqM); Potassium 4.1 mmol/L (3.5-5.1); Sodium 138 mmol/L (137-145)
[2024-07-22 09:47] LABS: Basophils # (A) 0.06 X 10*3/uL (0.00-0.10); Basophils % (A) 0.8 %; Eosinophils % (A) 3.9 %; HCT 42.8 % (37.2-46.3); HGB 13.3 g/dL (12.0-15.0); Lymphocytes # (A) 1.37 X 10*3/uL (0.90-5.00); MCH 25.6 pg (27.0-32.0); MCHC 31.1 g/dL (32.0-37.0); MCV 82.5 FL (80.0-97.0); Mean Platelet Volume 9.2 FL (9.5-12.2); Monocytes # (A) 0.89 X 10*3/uL (0.20-1.00); Monocytes % (A) 11.7 %; NRBC Per 100 WBC 0 X 10*3/uL (0.00-0.01); Neutrophils # (A) 4.96 X 10*3/uL (1.80-7.70); Neutrophils % (A) 65.3 %; Platelet Count 310 X 10*3/uL (140-440); RBC 5.19 X 10*6/uL (4.10-5.20); RDW 14.6 % (11.5-14.5)
--- NOTE | 2024-07-22 09:54 | P.PN ---
Progress Note - Text 58-year-old white female patient had a fat necrosis of the wound right lower extremity patient went for debridement culture came back as a gram-positive cocci care of infectious disease for IV antibiotic aVF change dressing we use Medihoney gel patient has some mild swelling of the right lower extremity dressing should be changed daily with Medihoney gel
--- NOTE | 2024-07-22 14:26 | P.PN ---
Subjective Progress Note Date: 07/22/24 Principal diagnosis: Reason for follow-up is right leg wound and cellulitis Patient is a 58-year-old female possible history significant for asthma morbid obesity recently did have an laceration to the right lower extremity from a car door about 10 days before presentation the hospital was initially stitched in the ER, subsequently developing increasing swelling redn ess for the patient came to the hospital. On today's evaluation that is 07/22/2024, Patient is afebrile patient is currently on room air and denies having any shortness of breath, the patient denies any chest pain or cough, the patient denies any nausea vomiting did not have any abdominal pain and no diarrhea pain to the right leg is currently controlled. Patient white count 7.60, creatinine 0.66 culture growing gram-negative Objective - Vital Signs Vital signs: Vital Signs Temp 98.2 F 07/22/24 07:13 Pulse 71 07/22/24 07:13 Resp 18 07/22/24 07:13 BP 138/86 07/22/24 07:13 Pulse Ox 98 07/22/24 07:13 FiO2 Intake & Output 07/21/24 07/22/24 07/22/24 18:59 06:59 18:59 Intake Total 1620 Balance 1620 Intake: Oral 1620 Other: Voiding Method Toilet # Voids 3 4 - Exam GENERAL DESCRIPTION: Female up in the chair in no distress RESPIRATORY SYSTEM: Unlabored breathing , decreased breath sounds at bases HEART: S1 S2 regular rate and rhythm , ABDOMEN: Soft , no tenderness EXTREMITIES: Right leg wound is currently dressed - Labs CBC & Chem 7: 07/22/24 04:52 07/22/24 04:52 Labs: Abnormal Lab Results - Last 24 Hours (Table) 07/22/24 07/22/24 Range/Units 04:52 04:52 MCH 25.6 L (27.0-32.0) pg MCHC 31.1 L (32.0-37.0) g/dL RDW 14.6 H (11.5-14.5) % MPV 9.2 L (9.5-12.2) FL Glucose 102 H (74-99) mg/dL Microbiology - Last 24 Hours (Table) 07/21/24 13:10 Gram Stain - Preliminary Leg - Right Tissue Culture - Preliminary Gram Neg Bacilli 07/21/24 12:20 Gram Stain - Preliminary Leg - Right Wound Culture - Preliminary Gram Neg Bacilli Assessment and Plan (1) Cellulitis of right leg Current Visit: Yes Status: Acute Code(s): L03.115 - CELLULITIS OF RIGHT LOW ER LIMB SNOMED Code(s): 54536807042502489 (2) Infected wound Current Visit: Yes Status: Acute Code(s): T14.8XXA - OTHER INJURY OF UNSPECIFIED BODY REGION, INITIAL ENCOUNTER; L08.9 - LOCAL INFECTION OF THE SKIN AND SUBCUTANEOUS TISSUE, UNSP SNOMED Code(s): 27166799 Plan: 1patient presented to hospital with increasing swelling redness of the right lower extremity in this patient who did have a history of right leg laceration from a car door about 10 days ago that was stitched in the ER now presenting with worsening swelling redness concerning for infected wound likely from gram- positive skin camille 2-patient is surgical debridement of the wound with removal of the infected skin and deep culture which are currently growing gram-negative 3- will discontinue vancomycin and start the patient on cefepime pending f inalization of the culture Dictation was produced using [employer] dictation software. please excuse any grammatical, word or spelling errors. Time with Patient: Less than 30
[2024-07-22] MEDS: CEFEPIME 2 GM in SODIUM CHLORIDE 0.9% 100 ML IVPB ONE (16:15)
[2024-07-23] MEDS ORDERED: VANCOMYCIN TROUGH DUE 1 EACH MISC MISCELLANE ONE (06:00)
[2024-07-23 09:52] LABS: Basophils # (A) 0.05 X 10*3/uL (0.00-0.10); Basophils % (A) 0.7 %; Eosinophils # (A) 0.38 X 10*3/uL (0.04-0.35); Eosinophils % (A) 5.1 %; HCT 43.2 % (37.2-46.3); HGB 13.3 g/dL (12.0-15.0); Lymphocytes # (A) 1.57 X 10*3/uL (0.90-5.00); Lymphocytes % (A) 21.3 %; MCH 25.3 pg (27.0-32.0); MCHC 30.8 g/dL (32.0-37.0); MCV 82.1 FL (80.0-97.0); Mean Platelet Volume 9.5 FL (9.5-12.2); Monocytes # (A) 0.84 X 10*3/uL (0.20-1.00); Monocytes % (A) 11.4 %; NRBC Per 100 WBC 0 X 10*3/uL (0.00-0.01); Neutrophils # (A) 4.52 X 10*3/uL (1.80-7.70); Neutrophils % (A) 61.2 %; Platelet Count 325 X 10*3/uL (140-440); RBC 5.26 X 10*6/uL (4.10-5.20); RDW 14.7 % (11.5-14.5); WBC 7.38 X 10*3/uL (4.50-10.00)
[2024-07-23 11:01] LABS: BUN/Creat Ratio 11.57 Ratio (12.00-20.00); Blood Urea Nitrogen 8.1 mg/dL (9.0-27.0); Glucose 98 mg/dL (70-110)
[2024-07-23 11:02] LABS: Calcium 8.5 mg/dL (8.7-10.3); Carbon Dioxide 26.3 mmol/L (21.6-31.8); Chloride 104 mmol/L (96-109); Potassium 4.4 mmol/L (3.5-5.5); Sodium 139 mmol/L (135-145)
[2024-07-23 11:10] LABS: Basophils # (A) 0.06 10*3/uL (0.00-0.10); Basophils % (A) 0.8 %; Eosinophils # (A) 0.34 10*3/uL (0.04-0.35); Eosinophils % (A) 4.6 %; HCT 44.4 % (37.2-46.3); HGB 14.1 g/dL (12.0-15.0); Lymphocytes # (A) 1.07 10*3/uL (0.90-5.00); Lymphocytes % (A) 14.3 %; MCH 25.9 pg (27.0-32.0); MCHC 31.8 g/dL (32.0-37.0); MCV 81.6 fL (80.0-97.0); Mean Platelet Volume 9.2 fL (9.5-12.2); Monocytes # (A) 0.93 10*3/uL (0.20-1.00); Monocytes % (A) 12.4 %; Neutrophils # (A) 5.05 10*3/uL (1.80-7.70); Neutrophils % (A) 67.6 %; Platelet Count 310 10*3/uL (140-440); RBC 5.44 10*6/uL (4.10-5.20); RDW 14.6 % (11.5-14.5); WBC 7.47 10*3/uL (4.50-10.00)
[2024-07-23] MEDS: ACETAMINOPHEN TAB 325 MG TAB PO PRN (11:32)
[2024-07-23] MEDS: cefTRIAXone 2 GM in DEXTROSE 5% IN WATER 50 ML IVPB SCH (13:39)
[2024-07-23] MEDS: LACTOBACILLUS ACIDOPHILUS/PECT 1 EACH CAPSULE PO SCH (14:08)
--- NOTE | 2024-07-23 15:16 | P.PN ---
Subjective Progress Note Date: 07/23/24 Principal diagnosis: Reason for follow-up is right leg wound and cellulitis Patient is a 58-year-old female possible history significant for asthma morbid obesity recently did have an laceration to the right lower extremity from a car door about 10 days before presentation the hospital was initially stitched in the ER, subsequently developing increasing swelling redn ess for the patient came to the hospital. On today's evaluation that is 07/23/2024, patient has been afebrile, patient is breathing comfortably and is currently on room air, patient denies having any chest pain and cough, patient denies nausea vomiting or diarrhea and no abdominal pain, patient pain to the right leg is currently controlled. Local culture currently growing Enterobacter CRE and bacteroids Objective - Vital Signs Vital signs: Vital Signs Temp 97.8 F 07/23/24 08:00 Pulse 85 07/23/24 08:00 Resp 16 07/23/24 08:00 BP 120/78 07/23/24 08:00 Pulse Ox 97 07/23/24 08:00 FiO2 Intake & Output 07/22/24 07/23/24 07/23/24 18:59 06:59 18:59 Intake Total 360 Balance 360 Intake: Oral 360 Other: Voiding Method Toilet Diaper # Voids 3 3 1 # Bowel Movements 1 - Exam GENERAL DESCRIPTION: Female up in the chair in no distress RESPIRATORY SYSTEM: Unlabored breathing , decreased breath sounds at bases HEART: S1 S2 regular rate and rhythm , ABDOMEN: Soft , no tenderness EXTREMITIES: Right leg wound base with minimal slough tissue surrounding redness no foul-smelling drainage - Labs CBC & Chem 7: 07/23/24 10:22 07/23/24 05:13 Labs: Abnormal Lab Results - Last 24 Hours (Table) 07/23/24 07/23/24 07/23/24 Range/Units 05:13 05:16 10:22 RBC 5.26 H 5.44 H (4.10-5.20) X 10*6/uL MCH 25.3 L 25.9 L (27.0-32.0) pg MCHC 30.8 L 31.8 L (32.0-37.0) g/dL RDW 14.7 H 14.6 H (11.5-14.5) % MPV 9.2 L (9.5-12.2) fL Eosinophils # 0.38 H (0.04-0.35) X 10*3/uL BUN 8.1 L (9.0-27.0) mg/dL BUN/Creatinine Ratio 11.57 L (12.00-20.00) Ratio Calcium 8.5 L (8.7-10.3) mg/dL Microbiology - Last 24 Hours (Table) 07/21/24 12:20 Gram Stain - Preliminary Leg - Right Wound Culture - Preliminary Enterobacter aerogenes Gram Neg Bacilli 07/21/24 13:10 Gram Stain - Preliminary Leg - Right Tissue Culture - Preliminary Enterobacter aerogenes Gram Neg Bacilli Assessment and Plan (1) Cellulitis of right leg Current Visit: Yes Status: Acute Code(s): L03.115 - CELLULITIS OF RIGHT LOWER LIMB SNOMED Code(s): 41666173607924685 (2) Infected wound Current Visit: Yes Status: Acute Code(s): T14.8XXA - OTHER INJURY OF UNSPECIFIED BODY REGION, INITIAL ENCOUNTER; L08.9 - LOCAL INFECTION OF THE SKIN AND SUBCUTANEOUS TISSUE, UNSP SNOMED Code(s): 93463615 (3) Carbapenem-resistant bacterial infection Current Visit: Yes Status: Acute Code(s): A49.8 - OTHER BACTERIAL INFECTIONS OF UNSPECIFIED SITE; Z16.13 - RESISTANCE TO CARBAPENEM SNOMED Code(s): 170218031 Plan: 1patient presented to hospital with increasing swelling redness of the right lower extremity in this patient who did have a history of right leg laceration from a car door about 10 days ago that was stitched in the ER now presenting with worsening swelling redness concerning for infected wound likely from gram- positive skin camille 2-patient is surgical debridement of the wound with removal of the infected skin and deep culture which are currently growing Enterobacter CRE and bacteroids I was able to talk to the micro lab to get the confirmation on this pathogen 3- will discontinue cefepime start the patient on meropenem will need IV antibiotic on discharge will discuss with the classification case manager Dictation was produced using [email or web address] software. please excuse any grammatical, word or spelling errors. Time with Patient: Greater than 30
[2024-07-23] MEDS ORDERED: LACTOBACILLUS ACIDOPHILUS/PECT 1 EACH CAPSULE PO SCH (16:00)
[2024-07-23] MEDS: MEROPENEM 1 GM in SODIUM CHLORIDE 0.9% 100 ML IVPB SCH (16:41)
--- NOTE | 2024-07-23 20:51 | P.HPIM ---
History of Present Illness H&P Date: 07/21/24 Chief Complaint: Worsening right leg wound 58-year-old female presents emergency department with infected wound. 10 days ago she suffered a laceration. Since she was seen in the ER she had suture repair noticed that her wound appeared to be red. Denies any malodorous nature to it. Patient came to ER to get her sutures removed and nurse who attempted to remove sutures felt that patient's wound appeared to be suspicious. Patient checked in because of that. Denies any fever chills or night sweats. Blood work completed in ED reveals a WBC of 7.13, hemoglobin of 14.8 and platelet count of 347, sodium 140, potassium 4.3, BUN/creatinine of 8/0.77 and blood glucose of 97, CRP of 3.3 -Patient was placed on IV vancomycin; ID is consulted for further recommendation Review of Systems REVIEW OF SYSTEMS: CONSTITUTIONAL: No fever, no malaise, no fatigue. HEENT: No recent visual problems or hearing problems. Denied any sore throat. CARDIOVASCULAR: No chest pain, orthopnea, PND, no palpitations, no syncope. PULMONARY: No shortness of breath, no cough, no hemoptysis. GASTROINTESTINAL: No diarrhea, no nausea, no vomiting, no abdominal pain. NEUROLOGICAL: No headaches, no weakness, no numbness. HEMATOLOGICAL: Denies any bleeding or petechiae. GENITOURINARY: Denies any burning micturition, frequency, or urgency. MUSCULOSKELETAL/RHEUMATOLOGICAL: Denies any joint pain, swelling, or any muscle pain. ENDOCRINE: Denies any polyuria or polydipsia. The rest of the 14-point review of systems is negative. Past Medical History Past Medical History: Asthma History of Any Multi-Drug Resistant Organisms: None Reported Past Surgical History: Section, Cholecystectomy Additional Past Surgical History / Comment(s): RT WRIST ORIF, PLATE/SCREWS Past Anesthesia/Blood Transfusion Reactions: No Reported Reaction Smoking Status: Never smoker - Past Family History Mother Family Medical History: No Reported History Medications and Allergies Home Medications Medication Instructions Recorded Confirmed Type Albuterol Inhaler [Ventolin 2 puff INHALATION RT-Q6H PRN 07/03/14 07/20/24 History Inhaler] Hydrocodone/Acetaminophen [[place] 1 tab PO TID 07/03/14 07/20/24 History 10-325] Gabapentin 600 mg PO BID 04/30/17 07/20/24 History Montelukast [Singulair] 10 mg PO HS 04/30/17 07/20/24 History Nortriptyline [Pamelor] 25 mg PO HS 05/20/23 07/20/24 History traZODone HCL 150 mg PO HS 05/20/23 07/20/24 History Ferrous Sulfate [Feosol] 325 mg PO BID 07/20/24 07/20/24 History Fluticasone Propion/Salmeterol 2 puff INHALATION RT-BID PRN 07/20/24 07/20/24 History [Advair Hfa 115-21 Mcg Inhaler] Naloxone HCl [Narcan] 4 mg NASAL DIRECTED PRN 07/20/24 07/20/24 History Pramipexole [Mirapex] 0.5 mg PO HS 07/20/24 07/20/24 History tiZANidine [Zanaflex] 4 mg PO HS 07/20/24 07/20/24 History Allergies Allergy/AdvReac Type Severity Reaction Status Date / Time No Known Allergies Allergy Verified 07/20/24 17:53 Physical Exam Vitals: Vital Signs Temp Pulse Pulse Resp BP BP Pulse Ox 07/21/24 07:15 97.3 F L 74 16 143/75 94 L 07/21/24 00:19 98.5 F 84 19 155/78 95 07/20/24 20:23 98.1 F 83 19 179/78 96 07/20/24 19:31 76 20 176/75 99 07/20/24 17:37 82 18 194/85 96 07/20/24 14:04 97.9 F 18 143/80 96 Intake and Output 07/20/24 07/21/24 07/21/24 22:59 06:59 14:59 Other: # Voids 1 1 Weight 170.097 kg General Impression: Alert and oriented x3, not in acute distress HEENT: Normocephalic atraumatic, extra-ocular movements intact, pupils equal and reactive to light bilaterally, mucous membranes moist. Cardiovascular: Heart regular rate and rhythm Chest: Able to complete full sentences, no retractions, no tachypnea Abdomen: abdomen soft, non-tender, non-distended, no organomegaly Musculoskeletal: Pulses present and equal in all extremities, no peripheral edema Motor: no focal deficits noted Neurological: CN II-XII grossly intact, no focal motor or sensory deficits noted Skin: Laceration to the right lower anterior leg with surrounding erythema. No purulent drainage Psych: Normal affect and mood Results CBC & Chem 7: 07/23/24 10:22 07/23/24 05:13 Labs: Abnormal Lab Results - Last 24 Hours (Table) 07/20/24 07/20/24 Range/Units 16:01 16:01 RBC 5.78 H (4.10-5.20) 10*6/uL Hct 46.8 H (37.2-46.3) % MCH 25.6 L (27.0-32.0) pg MCHC 31.6 L (32.0-37.0) g/dL MPV 8.7 L (9.5-12.2) fL C-Reactive Protein 3.3 H (<1.0) mg/dL Assessment and Plan Assessment: Infected wound right lower extremity/cellulitis -Patient has been placed on IV vancomycin; wound culture is obtained; blood cultures ordered and pending - We will monitor CBC, CRP and procalcitonin ID consult in place 2. Asthma; not in exacerbation; continue with home inhaler therapy; Singulair 10 mg daily; Advair 2 puffs twice daily 3. Restless leg syndrome; Mirapex 0.5 mg p.o. nightly 4. Chronic pain/neuropathy; Neurontin 600 mg twice daily; Pamelor 25 mg p.o. nightly; Zanaflex 4 mg p.o. nightly 5. Insomnia; continue home dose of Pamelor and trazodone DVT prophylaxis; SCDs CODE STATUS; full code
--- NOTE | 2024-07-23 20:52 | P.PN ---
Subjective Progress Note Date: 07/22/24 58-year-old female presents emergency department with infected wound. 10 days ago she suffered a laceration. Since she was seen in the ER she had suture repair noticed that her wound appeared to be red. Denies any malodorous nature to it. Patient came to ER to get her sutures removed and nurse who attempted to remove sutures felt that patient's wound appeared to be suspicious. Patient checked in because of that. Denies any fever chills or night sweats. Blood work completed in ED reveals a WBC of 7.13, hemoglobin of 14.8 and platelet count of 347, sodium 140, potassium 4.3, BUN/creatinine of 8/0.77 and blood glucose of 97, CRP of 3.3 -Patient was placed on IV vancomycin; ID is consulted for further recommendation Objective - Vital Signs Vital signs: Vital Signs Temp 98.2 F 07/22/24 07:13 Pulse 71 07/22/24 07:13 Resp 18 07/22/24 07:13 BP 138/86 07/22/24 07:13 Pulse Ox 98 07/22/24 07:13 FiO2 Intake & Output 07/21/24 07/22/24 07/22/24 18:59 06:59 18:59 Intake Total 1620 Balance 1620 Intake: Oral 1620 Other: Voiding Method Toilet # Voids 3 4 - Exam General Impression: Alert and oriented x3, not in acute distress HEENT: Normocephalic atraumatic, extra-ocular movements intact, pupils equal and reactive to light bilaterally, mucous membranes moist. Cardiovascular: Heart regular rate and rhythm Chest: Able to complete full sentences, no retractions, no tachypnea Abdomen: abdomen soft, non-tender, non-distended, no organomegaly Musculoskeletal: Pulses present and equal in all extremities, no peripheral edema Motor: no focal deficits noted Neurological: CN II-XII grossly intact, no focal motor or sensory deficits noted Skin: Laceration to the right lower anterior leg with surrounding erythema. No purulent drainage Psych: Normal affect and mood - Labs CBC & Chem 7: 07/23/24 10:22 07/23/24 05:13 Labs: Abnormal Lab Results - Last 24 Hours (Table) 07/22/24 07/22/24 Range/Units 04:52 04:52 MCH 25.6 L (27.0-32.0) pg MCHC 31.1 L (32.0-37.0) g/dL RDW 14.6 H (11.5-14.5) % MPV 9.2 L (9.5-12.2) FL Glucose 102 H (74-99) mg/dL Microbiology - Last 24 Hours (Table) 07/21/24 13:10 Gram Stain - Preliminary Leg - Right Tissue Culture - Preliminary Gram Neg Bacilli 07/21/24 12:20 Gram Stain - Preliminary Leg - Right Wound Culture - Preliminary Gram Neg Bacilli Assessment and Plan Assessment: Infected wound right lower extremity/cellulitis -Patient has been placed on IV vancomycin; wound culture is obtained; blood cultures ordered and pending - We will monitor CBC, CRP and procalcitonin ID consult in place 2. Asthma; not in exacerbation; continue with home inhaler therapy; Singulair 10 mg daily; Advair 2 puffs twice daily 3. Restless leg syndrome; Mirapex 0.5 mg p.o. nightly 4. Chronic pain/neuropathy; Neurontin 600 mg twice daily; Pamelor 25 mg p.o. nightly; Zanaflex 4 mg p.o. nightly 5. Insomnia; continue home dose of Pamelor and trazodone DVT prophylaxis; SCDs CODE STATUS; full code
--- NOTE | 2024-07-23 20:53 | P.PN ---
Subjective Progress Note Date: 07/23/24 58-year-old female presents emergency department with infected wound. 10 days ago she suffered a laceration. Since she was seen in the ER she had suture repair noticed that her wound appeared to be red. Denies any malodorous nature to it. Patient came to ER to get her sutures removed and nurse who attempted to remove sutures felt that patient's wound appeared to be suspicious. Patient checked in because of that. Denies any fever chills or night sweats. Blood work completed in ED reveals a WBC of 7.13, hemoglobin of 14.8 and platelet count of 347, sodium 140, potassium 4.3, BUN/creatinine of 8/0.77 and blood glucose of 97, CRP of 3.3 -Patient was placed on IV vancomycin; ID is consulted for further recommendation 07/23/2024 Patient is seen and evaluated sitting up in bedside chair; eager to be discharged home patient presented to hospital with increasing swelling redness of the right low er extremity in this patient who did have a history of right leg laceration from a car door about 10 days ago that was stitched in the ER now presenting with worsening swelling redness concerning for infected wound likely from gram- positive skin camille -patient is surgical debridement of the wound with removal of the infected skin and deep culture which are currently growing Enterobacter CRE and bacteroids I was able to talk to the micro lab to get the confirmation on this pathogen - ID on board and planning to discontinue cefepime start the patient on meropenem; will need IV antibiotic on discharge Objective - Vital Signs Vital signs: Vital Signs Temp 97.8 F 07/23/24 08:00 Pulse 85 07/23/24 08:00 Resp 16 07/23/24 08:00 BP 120/78 07/23/24 08:00 Pulse Ox 97 07/23/24 08:00 FiO2 Intake & Output 07/22/24 07/23/24 07/23/24 18:59 06:59 18:59 Intake Total 360 Balance 360 Intake: Oral 360 Other: Voiding Method Toilet Diaper # Voids 3 3 1 # Bowel Movements 1 - Exam General Impression: Alert and oriented x3, not in acute distress HEENT: Normocephalic atraumatic, extra-ocular movements intact, pupils equal and reactive to light bilaterally, mucous membranes moist. Cardiovascular: Heart regular rate and rhythm Chest: Able to complete full sentences, no retractions, no tachypnea Abdomen: abdomen soft, non-tender, non-distended, no organomegaly Musculoskeletal: Pulses present and equal in all extremities, no peripheral edema Motor: no focal deficits noted Neurological: CN II-XII grossly intact, no focal motor or sensory deficits noted Skin: Laceration to the right lower anterior leg with surrounding erythema. No purulent drainage Psych: Normal affect and mood - Labs CBC & Chem 7: 07/23/24 10:22 07/23/24 05:13 Labs: Abnormal Lab Results - Last 24 Hours (Table) 07/23/24 Range/Units 05:16 RBC 5.26 H (4.10-5.20) X 10*6/uL MCH 25.3 L (27.0-32.0) pg MCHC 30.8 L (32.0-37.0) g/dL RDW 14.7 H (11.5-14.5) % Eosinophils # 0.38 H (0.04-0.35) X 10*3/uL Microbiology - Last 24 Hours (Table) 07/21/24 12:20 Gram Stain - Preliminary Leg - Right Wound Culture - Preliminary Enterobacter aerogenes Gram Neg Bacilli 07/21/24 13:10 Gram Stain - Preliminary Leg - Right Tissue Culture - Preliminary Enterobacter aerogenes Gram Neg Bacilli Assessment and Plan Assessment: Infected wound right lower extremity/cellulitis -Patient has been placed on IV vancomycin; wound culture is obtained; blood cultures ordered and pending - We will monitor CBC, CRP and procalcitonin ID consult in place 2. Asthma; not in exacerbation; continue with home inhaler therapy; Singulair 10 mg daily; Advair 2 puffs twice daily 3. Restless leg syndrome; Mirapex 0.5 mg p.o. nightly 4. Chronic pain/neuropathy; Neurontin 600 mg twice daily; Pamelor 25 mg p.o. nightly; Zanaflex 4 mg p.o. nightly 5. Insomnia; continue home dose of Pamelor and trazodone DVT prophylaxis; SCDs CODE STATUS; full code
[2024-07-24 08:35] LABS: Basophils # (A) 0.06 X 10*3/uL (0.00-0.10); Basophils % (A) 0.8 %; Eosinophils # (A) 0.34 X 10*3/uL (0.04-0.35); Eosinophils % (A) 4.4 %; HGB 13.2 g/dL (12.0-15.0); Lymphocytes # (A) 0.85 X 10*3/uL (0.90-5.00); MCH 25.3 pg (27.0-32.0); MCHC 30.7 g/dL (32.0-37.0); MCV 82.5 FL (80.0-97.0); Mean Platelet Volume 9.6 FL (9.5-12.2); Monocytes # (A) 0.75 X 10*3/uL (0.20-1.00); Monocytes % (A) 9.7 %; NRBC Per 100 WBC 0 X 10*3/uL (0.00-0.01); Neutrophils % (A) 73.8 %; Platelet Count 312 X 10*3/uL (140-440); RBC 5.21 X 10*6/uL (4.10-5.20); RDW 14.6 % (11.5-14.5); WBC 7.72 X 10*3/uL (4.50-10.00)
[2024-07-24 08:39] LABS: Blood Urea Nitrogen 11.1 mg/dL (9.0-27.0); Calcium 8.8 mg/dL (8.7-10.3); Carbon Dioxide 26.4 mmol/L (21.6-31.8); Chloride 102 mmol/L (96-109); Glucose 92 mg/dL (70-110); Potassium 4.4 mmol/L (3.5-5.5); Sodium 137 mmol/L (135-145)
--- NOTE | 2024-07-24 17:32 | P.PN ---
Progress Note - Text 58-year-old female patient had a wound on the right lower extremity we did debridement and PVD using Medihoney gel on daily basis dressing has been changed. Base of the wound is clean patient on IV antibiotic and care of infectious disease and has no fever or chills
[2024-07-25] MEDS: ONDANSETRON 4 MG/2 ML VIAL IVP PRN (00:34)
[2024-07-25] MEDS: MAG HYDROX/AL HYDROX/SIMETH 30 ML CUP PO PRN (00:34)
[2024-07-25] MEDS: PANTOPRAZOLE 40 MG TABLET PO SCH (00:34)
[2024-07-25 08:03] VITALS: RESP 17
--- NOTE | 2024-07-25 08:05 | P.PN ---
Subjective Progress Note Date: 07/24/24 Principal diagnosis: Reason for follow-up is right leg wound and cellulitis Patient is a 58-year-old female possible history significant for asthma morbid obesity recently did have an laceration to the right lower extremity from a car door about 10 days before presentation the hospital was initially stitched in the ER, subsequently developing increasing swelling redn ess for the patient came to the hospital. On today's evaluation that is 07/24/2024, Patient is afebrile this morning patient denies having any chest pain shortness of breath or cough, the patient is currently on room air, patient denies any abdominal pain no diarrhea no nausea no vomiting pain to the right leg is currently controlled. Patient white count is 7.72 creatinine 0.6 local culture with Pseudomonas and CRE Enterobacter Objective - Vital Signs Vital signs: Vital Signs Temp 98.1 F 07/24/24 14:00 Pulse 84 07/24/24 14:00 Resp 17 07/24/24 14:00 BP 116/73 07/24/24 14:00 Pulse Ox 94 L 07/24/24 14:00 FiO2 Intake & Output 07/23/24 07/24/24 07/24/24 18:59 06:59 18:59 Intake Total 360 240 Balance 360 240 Intake: Oral 360 240 Other: Voiding Method Toilet Toilet # Voids 6 2 - Exam GENERAL DESCRIPTION: Female up in the chair in no distress RESPIRATORY SYSTEM: Unlabored breathing , decreased breath sounds at bases HEART: S1 S2 regular rate and rhythm , ABDOMEN: Soft , no tenderness EXTREMITIES: Right leg wound currently dressed - Labs CBC & Chem 7: 07/24/24 03:44 07/24/24 03:44 Labs: Abnormal Lab Results - Last 24 Hours (Table) 07/24/24 Range/Units 03:44 RBC 5.21 H (4.10-5.20) X 10*6/uL MCH 25.3 L (27.0-32.0) pg MCHC 30.7 L (32.0-37.0) g/dL RDW 14.6 H (11.5-14.5) % Lymphocytes # 0.85 L (0.90-5.00) X 10*3/uL Microbiology - Last 24 Hours (Table) 07/21/24 12:20 Gram Stain - Final Leg - Right Wound Culture - Final Enterobacter aerogenes Pseudomonas aeruginosa 07/21/24 13:10 Gram Stain - Final Leg - Right Tissue Culture - Final Enterobacter aerogenes Pseudomonas aeruginosa 07/21/24 12:20 Anaerobic Culture - Preliminary Leg - Right Bacteroides thetaiotaomicron Assessment and Plan (1) Cellulitis of right leg Current Visit: Yes Status: Acute Code(s): L03.115 - CELLULITIS OF RIGHT LOWER LIMB SNOMED Code(s): 12648976610644462 (2) Infected wound Current Visit: Yes Status: Acute Code(s): T14.8XXA - OTHER INJURY OF UNSPECIFIED BODY REGION, INITIAL ENCOUNTER; L08.9 - LOCAL INFECTION OF THE SKIN AND SUBCUTANEOUS TISSUE, UNSP SNOMED Code(s): 05568801 (3) Carbapenem-resistant bacterial infection Current Visit: Yes Status: Acute Code(s): A49.8 - OTHER BACTERIAL INFECTIONS OF UNSPECIFIED SITE; Z16.13 - RESISTANCE TO CARBAPENEM SNOMED Code(s): 802529229 Plan: 1patient presented to hospital with increasing swelling redness of the right lower extremity in this patient who did have a history of right leg laceration from a car door about 10 days ago that was stitched in the ER now presenting with worsening swelling redness concerning for infected wound likely from gram- positive skin camille 2-patient is surgical debridement of the wound with removal of the infected skin and deep culture which are currently growing Enterobacter CRE and bacteroids 3-patient is currently being treated meropenem will need midline and 2-week course of IV meropenem on discharge prescription provided to the case monitor Dictation was produced using [employer] dictation software. please excuse any grammatical, word or spelling errors. Time with Patient: Less than 30
--- NOTE | 2024-07-25 09:43 | P.PN ---
Subjective Progress Note Date: 07/24/24 58-year-old female presents emergency department with infected wound. 10 days ago she suffered a laceration. Since she was seen in the ER she had suture repair noticed that her wound appeared to be red. Denies any malodorous nature to it. Patient came to ER to get her sutures removed and nurse who attempted to remove sutures felt that patient's wound appeared to be suspicious. Patient checked in because of that. Denies any fever chills or night sweats. Blood work completed in ED reveals a WBC of 7.13, hemoglobin of 14.8 and platelet count of 347, sodium 140, potassium 4.3, BUN/creatinine of 8/0.77 and blood glucose of 97, CRP of 3.3 -Patient was placed on IV vancomycin; ID is consulted for further recommendation 07/23/2024 Patient is seen and evaluated sitting up in bedside chair; eager to be discharged home patient presented to hospital with increasing swelling redness of the right l ower extremity in this patient who did have a history of right leg laceration from a car door about 10 days ago that was stitched in the ER now presenting with worsening swelling redness concerning for infected wound likely from gram- positive skin camille -patient is surgical debridement of the wound with removal of the infected skin and deep culture which are currently growing Enterobacter CRE and bacteroids I was able to talk to the micro lab to get the confirmation on this pathogen - ID on board and planning to discontinue cefepime start the patient on meropenem; will need IV antibiotic on discharge 07/24/2024 Patient is seen in follow-up today with vascular surgery and infectious disease following. Patient is continued on IV antibiotics and will be planning for outpatient IV antibiotic therapy and patient will require a midline currently awaiting case management to verify coverage and discharge planning in process. Will order midline and discuss further with infectious disease with possible discharge in the next 24 hours. Patient is afebrile with no reports of chest pain or shortness of breath. Patient has been tolerating diet with no reported nausea or vomiting. Will be arranging for home care outpatient as well Review of systems: Constitutional: No reports of fatigue, fever, or chills Cardiovascular: No reports of chest pain or palpitations Respiratory: No reports of shortness of breath or cough GI: No reports of nausea, vomiting, reports occasional episodes of loose stools : No reports of dysuria or retention Neurovascular: reports of generalized weakness , some right lower extremity discomfort All medications have been reviewed Physical exam: Gen: This is a 58-year-old female who is awake, alert and oriented x 3, well- developed, morbidly obese HEENT: Head is atraumatic, normocephalic. Pupils equal, round. Sclerae is anicteric. NECK: Supple. No JVD. No lymphadenopathy. No thyromegaly. LUNGS: Diminished breath sounds bilaterally otherwise clear to auscultation. No wheezes or rhonchi. No intercostal retractions. HEART: Regular rate and rhythm. No murmur. ABDOMEN: Soft. Obese bowel sounds are present. No masses. No tenderness. EXTREMITIES: No pedal edema. No calf tenderness. Bilateral lower extremity swelling NEUROLOGICAL: Patient is awake, alert and oriented x3. Cranial nerves 2 through 12 are grossly intact. Diffusely weak Assessment: -Infected wound right lower extremity/cellulitis, present on admission with culture showing Enterobacter and Pseudomonas -Asthma; not in exacerbation -Restless leg syndrome -Chronic pain/neuropathy -Insomnia history -Morbid obesity with a BMI of 58.7 GI prophylaxis DVT prophylaxis; SCDs CODE STATUS; full code Plan: Patient is continued on IV antibiotics with infectious disease following with cultures growing Enterobacter and Pseudomonas with some resistance. Patient will require a midline and arrangements for outpatient IV antibiotic therapy with case management following Awaiting insurance authorization to verify coverage of antibiotics and planning for discharge in the next 24 to 48 hours. Continue local wound care Continue supportive care for diarrhea and if having multiple episodes of diarrhea recommend obtaining a C. difficile sample. Patient reports she only had 2 bowel movements from last night into today we will monitor. Encouraged increase activity as tolerated Elevate lower extremities while at rest Consider discharge planning in the next 24 hours if antibiotics are arranged outpatient The impression and plan of care has been dictated by Deborah Rocha, Nurse Practitioner as directed. Dr. Amish MD I have performed a history and examination and MDM of this patient, discussed the same with the dictator, and agree with the dictator's assessment and plan as written ,documented as a scribe. Based on total visit time, I have performed more than 50% of the visit. Objective - Vital Signs Vital signs: Vital Signs Temp 98.5 F 07/24/24 06:51 Pulse 86 07/24/24 06:51 Resp 17 07/24/24 06:51 BP 116/72 07/24/24 06:51 Pulse Ox 93 L 07/24/24 06:51 FiO2 Intake & Output 07/23/24 07/24/24 07/24/24 18:59 06:59 18:59 Intake Total 360 Balance 360 Intake: Oral 360 Other: Voiding Method Toilet # Voids 6 2 - Labs CBC & Chem 7: 07/24/24 03:44 07/24/24 03:44 Labs: Abnormal Lab Results - Last 24 Hours (Table) 07/23/24 07/23/24 07/23/24 Range/Units 05:13 05:16 10:22 RBC 5.26 H 5.44 H (4.10-5.20) X 10*6/uL MCH 25.3 L 25.9 L (27.0-32.0) pg MCHC 30.8 L 31.8 L (32.0-37.0) g/dL RDW 14.7 H 14.6 H (11.5-14.5) % MPV 9.2 L (9.5-12.2) fL Lymphocytes # (0.90-5.00) X 10*3/uL Eosinophils # 0.38 H (0.04-0.35) X 10*3/uL BUN 8.1 L (9.0-27.0) mg/dL BUN/Creatinine Ratio 11.57 L (12.00-20.00) Ratio Calcium 8.5 L (8.7-10.3) mg/dL 07/24/24 Range/Units 03:44 RBC 5.21 H (4.10-5.20) X 10*6/uL MCH 25.3 L (27.0-32.0) pg MCHC 30.7 L (32.0-37.0) g/dL RDW 14.6 H (11.5-14.5) % MPV (9.5-12.2) fL Lymphocytes # 0.85 L (0.90-5.00) X 10*3/uL Eosinophils # (0.04-0.35) X 10*3/uL BUN (9.0-27.0) mg/dL BUN/Creatinine Ratio (12.00-20.00) Ratio Calcium (8.7-10.3) mg/dL Microbiology - Last 24 Hours (Table) 07/21/24 12:20 Gram Stain - Final Leg - Right Wound Culture - Final Enterobacter aerogenes Pseudomonas aeruginosa 07/21/24 13:10 Gram Stain - Final Leg - Right Tissue Culture - Final Enterobacter aerogenes Pseudomonas aeruginosa 07/21/24 12:20 Anaerobic Culture - Preliminary Leg - Right Bacteroides thetaiotaomicron
--- NOTE | 2024-07-25 15:16 | P.PN ---
Subjective Progress Note Date: 07/25/24 Principal diagnosis: Reason for follow-up is right leg wound and cellulitis Patient is a 58-year-old female possible history significant for asthma morbid obesity recently did have an laceration to the right lower extremity from a car door about 10 days before presentation the hospital was initially stitched in the ER, subsequently developing increasing swelling redn ess for the patient came to the hospital. On today's evaluation that is 07/25/2024,the patient denies any fever or any chills, patient is breathing comfortably on room air, the patient denies chest pain shortness of breath and no significant cough, patient denies abdominal pain, no nausea vomiting or diarrhea. Pain to the right leg is currently controlled. Patient white count 7.7 today as of yesterday no CBC was done today culture with CRE Enterobacter Pseudomonas and bacteroids Objective - Vital Signs Vital signs: Vital Signs Temp 97.8 F 07/25/24 07:51 Pulse 88 07/25/24 07:51 Resp 17 07/25/24 11:14 BP 145/75 07/25/24 07:51 Pulse Ox 92 L 07/25/24 07:51 FiO2 Intake & Output 07/24/24 07/25/24 07/25/24 18:59 06:59 18:59 Intake Total 1490 1620 Balance 1490 1620 Intake: Oral 1490 1620 Other: Voiding Method Toilet Toilet Toilet # Voids 2 3 - Exam GENERAL DESCRIPTION: Female up in the chair in no distress RESPIRATORY SYSTEM: Unlabored breathing , decreased breath sounds at bases HEART: S1 S2 regular rate and rhythm , ABDOMEN: Soft , no tenderness EXTREMITIES: Right leg wound currently dressed - Labs CBC & Chem 7: 07/24/24 03:44 07/24/24 03:44 Assessment and Plan (1) Cellulitis of right leg Current Visit: Yes Status: Acute Code(s): L03.115 - CELLULITIS OF RIGHT LOWER LIMB SNOMED Code(s): 81232883438677220 (2) Infected wound Current Visit: Yes Status: Acute Code(s): T14.8XXA - OTHER INJURY OF UNSPECIFIED BODY REGION, INITIAL ENCOUNTER; L08.9 - LOCAL INFECTION OF THE SKIN AND SUBCUTANEOUS TISSUE, UNSP SNOMED Code(s): 35079784 (3) Carbapenem-resistant bacterial infection Current Visit: Yes Status: Acute Code(s): A49.8 - OTHER BACTERIAL INFECTIONS OF UNSPECIFIED SITE; Z16.13 - RESISTANCE TO CARBAPENEM SNOMED Code(s): 710668170 Plan: 1patient presented to hospital with increasing swelling redness of the right lower extremity in this patient who did have a history of right leg laceration from a car door about 10 days ago that was stitched in the ER now presenting with worsening swelling redness concerning for infected wound likely from gram-positive skin camille 2-patient is surgical debridement of the wound with removal of the infected skin and deep culture which are currently growing Enterobacter CRE and bacteroids 3-patient did have a midline placement outpatient IV pneumatic has been arranged to continue with the meropenem x 2 weeks and close outpatient follow-up Dictation was produced using [employer] dictation software. please excuse any grammatical, word or spelling errors. Time with Patient: Less than 30
[2024-07-25 15:21] VITALS: BP 171/81; PULSE 87; TEMP 98.3
--- NOTE | 2024-07-26 03:07 | PN ---
PROGRESS NOTE This is a 58-year-old female patient came with flap necrosis of the wound, right lower extremity. We did the debridement and we have been treating with local wound care. The patient is on IV antibiotic under the care of Infectious Disease. We have changed dressing today. We used silver alginate. This should be changed every 48 hours. If the patient goes home, the patient should follow up with me in the [facility] on Wednesday. MMADRIANA / HOA: [id number] /
--- NOTE | 2024-07-31 06:09 | P.DS ---
Providers Date of admission: 07/20/24 17:20 Expected date of discharge: 07/25/24 Attending physician: Mani Coelho Consults: 07/20/24 17:19 Consult Physician Routine Consulting Provider: Jackie Roca Consult Reason/Comments: infected laceration Do you want consulting provider notified?: Yes 07/21/24 13:07 Consult Physician Routine Consulting Provider: Obed Mcneil Consult Reason/Comments: R leg wound, debridemnt and deep cultures Do you want consulting provider notified?: Yes Primary care physician: Karly Wagner Hospital Course: Final diagnosis -Infected wound right lower extremity/cellulitis, present on admission with culture showing Enterobacter and Pseudomonas -Asthma; not in exacerbation -Restless leg syndrome -Chronic pain/neuropathy -Insomnia history -Morbid obesity with a BMI of 58.7 GI prophylaxis DVT prophylaxis full code Discharge disposition Patient is being discharged in a stable condition with guarded prognosis to home with home care. Patient will follow-up with Dr. Paulino Coelho in the outpatient setting upon discharge. Patient is to continue with current IV medications with midline and wound VAC and close outpatient follow-up with wound care and infectious disease as scheduled. Total time taken is greater than 35 minutes. Hospital course This is a 58-year-old female who was recently admitted with infected right lower extremity along with cellulitis being closely monitored with infectious disease following maintained on antibiotics. Cultures finalized with Enterobacter and Pseudomonas and has received midline and will be going on IV antibiotics on discharge. Discharge planning has been arranged by case management and has been approved for wound VAC and home care and will be discharged today. Patient instructed to follow-up with the wound care center along with her primary care provider and infectious disease outpatient. Please refer to other consultation notes for further HPI. Currently no reports of chest pain, shortness of breath, or palpitations. Patient is afebrile. No reports of nausea or vomiting and patient is tolerating diet. Patient will be discharged home today. Physical exam: Gen: This is a 58-year-old female who is awake, alert and oriented x 3, well- developed, morbidly obese HEENT: Head is atraumatic, normocephalic. Pupils equal, round. Sclerae is anicteric. NECK: Supple. No JVD. No lymphadenopathy. No thyromegaly. LUNGS: Clear to auscultation. No wheezes or rhonchi. No intercostal retractions. HEART: Regular rate and rhythm. No murmur. ABDOMEN: Soft. Bowel sounds are present. No masses. No tenderness. EXTREMITIES: No pedal edema. No calf tenderness. NEUROLOGICAL: Patient is awake, alert and oriented x3. Cranial nerves 2 through 12 are grossly intact. Please refer to medication reconciliation sheet for a list of medications. The impression and plan of care has been dictated by Deborah Rocha, Nurse Practitioner as directed. Dr. Amish MD I have performed a history and examination and MDM of this patient, discussed the same with the dictator, and agree with the dictator's assessment and plan as written ,documented as a scribe. Based on total visit time, I have performed more than 50% of the visit. Patient Condition at Discharge: Fair Plan - Discharge Summary Discharge Rx Participant: Yes New Discharge Prescriptions: New polyethylene glycoL 3350 [Miralax] 17 gm PO DAILY PRN #527 gm PRN Reason: Constipation Pantoprazole [Protonix] 40 mg PO DAILY #30 tab Acetaminophen Tab [Tylenol] 650 mg PO Q6HR PRN tab PRN Reason: Mild Pain Or Fever > 100.5 Mag Hydrox/Al Hydrox/Simeth [Maalox] 30 ml PO Q6HR PRN #0 ml PRN Reason: Gi Upset Meropenem [Merrem] 1 gm IVPB Q8HR each Ondansetron Odt [Zofran Odt] 4 mg PO Q8HR PRN #20 tab PRN Reason: Nausea Continue Albuterol Inhaler [Ventolin Hfa Inhaler] 2 puff INHALATION RT-Q6H PRN PRN Reason: Shortness Of Breath Hydrocodone/Acetaminophen [[place] 10-325] 1 tab PO TID Montelukast [Singulair] 10 mg PO HS Gabapentin 600 mg PO BID Nortriptyline [Pamelor] 25 mg PO HS Naloxone HCl [Narcan] 4 mg NASAL DIRECTED PRN PRN Reason: Overdose tiZANidine [Zanaflex] 4 mg PO HS Pramipexole [Mirapex] 0.5 mg PO HS traZODone HCL 150 mg PO HS Fluticasone Propion/Salmeterol [Advair Hfa 115-21 Mcg Inhaler] 2 puff INHALATION RT-BID PRN PRN Reason: Shortness Of Breath Ferrous Sulfate [Iron (65 MG Elemental)] 325 mg PO BID Discharge Medication List Albuterol Inhaler [Ventolin Hfa Inhaler] 2 puff INHALATION RT-Q6H PRN 07/03/14 [History] Hydrocodone/Acetaminophen [[place] 10-325] 1 tab PO TID 07/03/14 [History] Gabapentin 600 mg PO BID 04/30/17 [History] Montelukast [Singulair] 10 mg PO HS 04/30/17 [History] Nortriptyline [Pamelor] 25 mg PO HS 05/20/23 [History] traZODone HCL 150 mg PO HS 05/20/23 [History] Ferrous Sulfate [Iron (65 MG Elemental)] 325 mg PO BID 07/20/24 [History] Fluticasone Propion/Salmeterol [Advair Hfa 115-21 Mcg Inhaler] 2 puff INHALATION RT-BID PRN 07/20/24 [History] Naloxone HCl [Narcan] 4 mg NASAL DIRECTED PRN 07/20/24 [History] Pramipexole [Mirapex] 0.5 mg PO HS 07/20/24 [History] tiZANidine [Zanaflex] 4 mg PO HS 07/20/24 [History] Acetaminophen Tab [Tylenol] 650 mg PO Q6HR PRN tab 07/25/24 [Rx] Mag Hydrox/Al Hydrox/Simeth [Maalox] 30 ml PO Q6HR PRN #0 ml 07/25/24 [Rx] Meropenem [Merrem] 1 gm IVPB Q8HR each 07/25/24 [Rx] Ondansetron Odt [Zofran Odt] 4 mg PO Q8HR PRN #20 tab 07/25/24 [Rx] Pantoprazole [Protonix] 40 mg PO DAILY #30 tab 07/25/24 [Rx] polyethylene glycoL 3350 [Miralax] 17 gm PO DAILY PRN #527 gm 07/25/24 [Rx] Follow up Appointment(s)/Referral(s): Karly Wagner MD [Primary Care Provider] - 1-2 days [facility] [REFERRING] - As Needed ([facility] will deliver the IV antibiotic supplies tonight between 6-8pm. ) [facility] [NON-STAFF] - 07/31/24 (Office stated they will call patient with follow-up appointment.) Jackie Roca MD [STAFF PHYSICIAN] - 1 Week [facility] [NON-STAFF] - As Needed ([facility] will call you to schedule your in home nursing visits to start outpatient IV antibiotic training. Your first visit will be the day after discharge from the hospital. ) Patient Instructions/Handouts: Acute Wound Care (DC), Midline Catheter (DC) Activity/Diet/Wound Care/Special Instructions: Activity limited until follow-up Follow-up with primary care provider on discharge Follow-up with infectious disease outpatient Continue local wound care Continue with IV antibiotics for 2 weeks course and will be having home care Continue with bowel regimen as needed and if having feelings of constipation use MiraLAX. If having loose stools, then hold on using MiraLAX Use Zofran as needed for nausea Need to follow up with Dr. Mcneil on WednesdayAugust 02 at the [facility] Changed dressing every 48 hours Silver, 4x4 Kirlex and mik wrapped Discharge Disposition: HOME WITH HOME HEALTH SERVICES
== END 2024-07-25 18:58 | disposition home health service (06) | DRG 721 ==
LOC: EC 14:00 → 4SSUR 17:20
PROVIDERS: ADMIT Hospitalist; ATTEND Hospitalist
PROC: 0HBKXZZ Excision of Right Lower Leg Skin, External Approach (ICD-10-PCS; principal; 2024-07-21)
DX: T81.41XA Infection following a procedure, superficial incisional surgical site, initial encounter (principal); L03.115 Cellulitis of right lower limb; I96 Gangrene, not elsewhere classified; B96.5 Pseudomonas (aeruginosa) (mallei) (pseudomallei) as the cause of diseases classified elsewhere; Z68.43 Body mass index [BMI] 50.0-59.9, adult; S81.811A Laceration without foreign body, right lower leg, initial encounter; J45.909 Unspecified asthma, uncomplicated; G25.81 Restless legs syndrome; E66.01 Morbid (severe) obesity due to excess calories; G47.00 Insomnia, unspecified; G62.9 Polyneuropathy, unspecified; B96.89 Other specified bacterial agents as the cause of diseases classified elsewhere; B96.6 Bacteroides fragilis [B. fragilis] as the cause of diseases classified elsewhere; W22.8XXA Striking against or struck by other objects, initial encounter; Z16.13 Resistance to carbapenem; Z79.899 Other long term (current) drug therapy; Y82.8 Other medical devices associated with adverse incidents
CPT/HCPCS: 36410; 36415; 76937; 80048; 85025; 86140; 87070; 87075; 87077; 87186; 87205; 94640; 96365; 99284; 99285